=== PATIENT | female | born 1995 | race Caucasian/White ===

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

== ENCOUNTER 2017-01-13 07:50 | Inpatient (IN) | payer MEDICAID ==
--- NOTE | 2017-01-13 08:31 | PCM.LDHP ---
L&D History of Present Illness - General Date of Service: 01/13/17 Admit Problem/Dx: Admission Diagnosis/Problem Admission Diagnosis/Problem Source of Information: Patient History Limitations: Reports: No Limitations - History of Present Illness Introduction:: 21 year old female at 35w4d here with PROM of clear fluid at about 7am. Continued leaking such that she comes in sitting on a saturated towel. No bleeding. No contractions then but increasingly painful since arrival. care with Dr. Ram complicated by 1) History of partial abruption at 18 weeks with good growth since 2) RH neg s/p rhogam x2 3) [place] travel with negative Zika testing Improves with: Reports: None Worsens with: Reports: None Associated Symptoms: Reports: N - Related Data Allergies/Adverse Reactions: Allergies Allergy/AdvReac Type Severity Reaction Status Date / Time No Known Allergies Allergy Verified 09/11/16 03:22 Home Medications: Home Meds Pnv No.122/Iron/Folic Acid [ Multi Tablet] 1 each PO DAILY 09/11/16 [ History] Past Medical History - Past Health History Medical/Surgical History: Denies Medical/Surgical History 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: - Past Surgical History HEENT Surgical History: Reports: Tonsillectomy Social & Family History - Tobacco Use Smoking Status *Q: Never Smoker Second Hand Smoke Exposure: No - Caffeine Use Caffeine Use: Reports: None - Recreational Drug Use Recreational Drug Use: No - Living Situation & Occupation Living situation: Reports: Single, with Significant Other, with Family H&P Review of Systems - Review of Systems: Review Of Systems: See Below General: Reports: No Symptoms HEENT: Reports: No Symptoms Pulmonary: Reports: No Symptoms Cardiovascular: Reports: No Symptoms Gastrointestinal: Reports: No Symptoms Genitourinary: Reports: Other (see hpi) Musculoskeletal: Reports: No Symptoms Skin: Reports: No Symptoms Psychiatric: Reports: No Symptoms Neurological: Reports: No Symptoms Hematologic/Lymphatic: Reports: No Symptoms Immunologic: Reports: No Symptoms L&D Exam - Exam Exam: See Below - Vital Signs Weight: 68.946 kg - OB Specific Contraction Intensity: Mild to Moderate Movement: Active Heart Tones: Present Heart Tones per Min: 140 Heart Rate (FHR) Variability: Moderate (6-25 bmp) Presentation: Vertex Estimated Weight: 5#3oz - Altamirano Score Altamirano Score Cervix Position: Midposition Altamirano Score Consistency: Soft Altamirano Score Effacement: 51-70% Altamirano Score Dilation: 1-2 cm Altamirano Score 's Station: -3 Altamirano Score Total: 6 - Exam General: Alert, Oriented HEENT: PERRLA, Conjunctiva Clear, EACs Clear, EOMI, Hearing Intact, Mucosa Moist & [place], Nares Patent, Normal Nasal Septum, Posterior Pharynx Clear, TMs Clear Neck: Supple, Trachea Midline Lungs: Clear to Auscultation, Normal Respiratory Effort Cardiovascular: Regular Rate, Regular Rhythm GI/Abdominal Exam: Normal Bowel Sounds, Soft, Non-Tender, No Organomegaly, No Distention, No Abnormal Bruit, No Mass Genitourinary: Normal external exam, Normal bimanual exam, Normal speculum exam Back Exam: Normal Inspection, Full Range of Motion Extremities: Normal Inspection, Normal Range of Motion, Non-Tender, No Pedal Edema, Normal Capillary Refill Skin: Warm, Dry, Intact - Problem List (1) premature rupture of membranes SNOMED Code(s): 794445255, 280471617 ICD Code: O42.919 - PRETRM ALLAN ROM, UNSP TIME BETW RUPT AND ONST LABR, UNSP TRI Status: Acute Current Visit: Yes (2) Placental abruption in second trimester SNOMED Code(s): 787326527 ICD Code: O45.92 - PREMATURE SEPARATION OF PLACENTA, UNSP, SECOND TRIMESTER Status: Acute Current Visit: No (3) Rh negative state in antepartum period SNOMED Code(s): 054974992, 426065178 ICD Code: O09.899 - SUPERVISION OF OTHER HIGH RISK PREGNANCIES, UNSP TRIMESTER Status: Acute Current Visit: No Qualifiers: (4) labor in third trimester without delivery SNOMED Code(s): 9164244 ICD Code: O60.03 - LABOR WITHOUT DELIVERY, THIRD TRIMESTER Status: Acute Current Visit: Yes Problem List Initiated/Reviewed/Updated: Yes Assessment/Plan Comment:: 21 year old at 35w4d here with labor and prom. GBS pending and will be back in 30 minutes will treat as indicated CBC type and screen Anticipate
[2017-01-13] MEDS ORDERED: Sodium Chloride 0.9% 10 ML Syringe FLUSH PRN (08:32)
[2017-01-13] MEDS: Lactated Ringers 1,000 ML IV SCH ×4 (10:15→16:48)
[2017-01-13] MEDS ORDERED: Ampicillin 2 GM in Sodium Chloride 0.9% 100 ML IV STA (10:17)
[2017-01-13] MEDS ORDERED: Ampicillin 1 GM in Sodium Chloride 0.9% 100 ML IV STA (10:26)
[2017-01-13] MEDS ORDERED: Sodium Chloride 0.9% 100 ML ONE (10:27)
[2017-01-13] MEDS ORDERED: Oxytocin/Lactated Ringers 10 UNIT/1,000 ML BAG IV SCH (12:30)
[2017-01-13] MEDS ORDERED: fentaNYL 100 MCG/2 ML SDV ONE (16:33)
[2017-01-13] MEDS ORDERED: Ondansetron 4 MG/2 ML SDV IVPUSH PRN (16:35)
[2017-01-13] MEDS ORDERED: ePHEDrine 50 MG/ML SDV IVPUSH PRN (16:35)
[2017-01-13] MEDS ORDERED: fentaNYL 100 MCG/2 ML SDV EPIDUR PRN (16:35)
[2017-01-13] MEDS ORDERED: diphenhydrAMINE 50 MG/ML SDV IVPUSH PRN (16:35)
--- NOTE | 2017-01-13 16:41 | PCM.PREANE ---
Preanesthetic Assessment - Procedure Proposed Procedure: Labor Epidural - Anesthesia/Transfusion/Family Hx Anesthesia History: Prior Anesthesia Without Reaction Type of Anesthesia Reaction: Excessive Nausea/Vomiting Family History of Anesthesia Reaction: No Transfusion History: No Prior Transfusion(s) - Review of Systems General: No Symptoms Pulmonary: No Symptoms Cardiovascular: No Symptoms Gastrointestinal: Other (GERD with ) Neurological: No Symptoms Other: Reports: None - Physical Assessment NPO Status Date: 01/13/17 NPO Status Time: 14:30 Respiratory Rate: 18 Vital Signs: Last Vital Signs Temp 36.6 C 01/13/17 08:32 Pulse 86 01/13/17 08:32 Resp 18 01/13/17 08:32 BP 115/72 01/13/17 08:32 Pulse Ox Height: 1.63 m Weight: 78.953 kg ASA Class: 2 Mental Status: Alert & Oriented x3 Airway Class: Mallampati = 2 Dentition: Reports: Normal Dentition Thyro-Mental Finger Breadths: 3 Mouth Opening Finger Breadths: 3 ROM/Head Extension: Full Lungs: Clear to Auscultation, Normal Respiratory Effort Cardiovascular: Regular Rate, Regular Rhythm - Lab Values: Laboratory Last Values WBC 12.18 K/mm3 (3.98-10.04) H 01/13/17 08:49 RBC 4.32 M/mm3 (3.98-5.22) 01/13/17 08:49 Hgb 13.2 gm/L (11.2-15.7) 01/13/17 08:49 Hct 38.4 % (34.1-44.9) 01/13/17 08:49 MCV 88.9 fl (79.4-94.8) 01/13/17 08:49 MCH 30.6 pg (25.6-32.2) 01/13/17 08:49 MCHC 34.4 g/dl (32.2-35.5) 01/13/17 08:49 RDW Std Deviation 40.9 fL (36.4-46.3) 01/13/17 08:49 Plt Count 177 K/mm3 (182-369) L 01/13/17 08:49 MPV 10.9 fl (9.4-12.3) 01/13/17 08:49 Blood Type O NEGATIVE 01/13/17 08:49 Gel Antibody Screen Positive 01/13/17 08:49 - Allergies Allergies/Adverse Reactions: Allergies Allergy/AdvReac Type Severity Reaction Status Date / Time No Known Allergies Allergy Verified 09/11/16 03:22 - Blood Blood Available: No Product(s) Available: None - Anesthesia Plan Pre-Op Medication Ordered: None - Acknowledgements Anesthesia Type Planned: Epidural Pt an Appropriate Candidate for the Planned Anesthesia: Yes Alternatives and Risks of Anesthesia Discussed w Pt/Guardian: Yes Pt/Guardian Understands and Agrees with Anesthesia Plan: Yes PreAnesthesia Questionnaire - Past Health History Medical/Surgical History: Denies Medical/Surgical History 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: - Past Surgical History HEENT Surgical History: Reports: Tonsillectomy - SUBSTANCE USE Smoking Status *Q: Never Smoker Tobacco Use Within Last Twelve Months: No Second Hand Smoke Exposure: No Recreational Drug Use History: No - HOME MEDS Home Medications: Home Meds Pnv No.122/Iron/Folic Acid [ Multi Tablet] 1 each PO DAILY 09/11/16 [ History] - CURRENT (IN HOUSE) MEDS Current Meds: Current Medications Lactated Ringer's (Ringers, Lactated) 1,000 mls @ 100 mls/hr IV ASDIRECTED LETY Last Admin: 01/13/17 14:12 Dose: 999 mls/hr Oxytocin/Lactated Ringer's (Pitocin In Lr 10 Units/1,000 Ml) 10 unit in 1,000 mls @ 500 mls/hr IV .CONTINUOUS LETY Sodium Chloride (Saline Flush) 10 ml FLUSH ASDIRECTED PRN PRN Reason: Keep Vein Open Discontinued Medications Ampicillin Sodium 2 gm/ Sodium (Chloride) 100 mls @ 200 mls/hr IV ONETIME STA Stop: 01/13/17 10:46 Last Admin: 01/13/17 10:45 Dose: 200 mls/hr Ampicillin Sodium 1 gm/ Sodium (Chloride) 100 mls @ 200 mls/hr IV ONETIME STA Stop: 01/13/17 10:55 Last Admin: 01/13/17 11:20 Dose: Not Given Sodium Chloride (Normal Saline) Confirm Administered Dose 100 mls @ as directed .ROUTE .STK-MED ONE Stop: 01/13/17 10:28 Last Admin: 01/13/17 11:23 Dose: Not Given
[2017-01-13] MEDS ORDERED: Bupivacaine/fentaNYL/NS 100 ML Bag EPIDUR SCH (16:45)
[2017-01-13] MEDS ORDERED: Witch Hazel Medicated Pads 100/Jar TOP PRN (19:24)
[2017-01-13] MEDS ORDERED: Docusate Sodium 100 MG Cap PO PRN (19:24)
[2017-01-13] MEDS ORDERED: Benzocaine/Menthol 20%-0.5% Spray 56 GM Canister TOP PRN (19:24)
[2017-01-13] MEDS ORDERED: Lanolin 100% Cream 7 GM Tube TOP PRN (19:24)
[2017-01-13] MEDS ORDERED: Bupivacaine 0.25% 10 ML SDV ONE (22:22)
--- NOTE | 2017-01-14 07:18 | PCM.PNPP ---
- General Info Date of Service: 01/14/17 Functional Status: Reports: Pain Controlled - Review of Systems General: Reports: No Symptoms HEENT: Reports: No Symptoms Pulmonary: Reports: No Symptoms Cardiovascular: Reports: No Symptoms Gastrointestinal: Reports: No Symptoms Genitourinary: Reports: No Symptoms Musculoskeletal: Reports: No Symptoms Skin: Reports: No Symptoms Neurological: Reports: No Symptoms Psychiatric: Reports: No Symptoms - General Info Date of Service: 01/14/17 - Patient Data Vital Signs - most recent: Last Vital Signs Temp 36.7 C 01/14/17 05:14 Pulse 71 01/14/17 05:14 Resp 18 01/14/17 05:14 BP 118/74 01/14/17 05:14 Pulse Ox 97 01/14/17 05:14 Weight - most recent: 78.953 kg I&O - last 24 hours: Intake & Output 01/13/17 01/14/17 01/14/17 22:59 06:59 14:59 Intake Total 4000 Balance 4000 Lab Results - last 24 hrs: Laboratory Results - last 24 hr 01/13/17 01/13/17 Range/Units 08:49 08:49 WBC 12.18 H (3.98-10.04) K/mm3 RBC 4.32 (3.98-5.22) M/mm3 Hgb 13.2 (11.2-15.7) gm/L Hct 38.4 (34.1-44.9) % MCV 88.9 (79.4-94.8) fl MCH 30.6 (25.6-32.2) pg MCHC 34.4 (32.2-35.5) g/dl RDW Std Deviation 40.9 (36.4-46.3) fL Plt Count 177 L (182-369) K/mm3 MPV 10.9 (9.4-12.3) fl Blood Type O NEGATIVE Gel Antibody Screen Positive Med Orders - Current: Current Medications Benzocaine/Menthol (Dermoplast Pain Relief [place]) 0 gm TOP ASDIRECTED PRN PRN Reason: Perineal Comfort Measure Docusate Sodium (Colace) 100 mg PO BID PRN PRN Reason: Constipation Emollient Ointment (Lansinoh Hpa) 0 gm TOP ASDIRECTED PRN PRN Reason: Sore Nipples Ibuprofen (Motrin) 600 mg PO Q6H PRN PRN Reason: Mild pain or fever Witch Melany (Tucks) 1 pad TOP ASDIRECTED PRN PRN Reason: Hemorrhoid pain Discontinued Medications Diphenhydramine HCl (Benadryl) 25 mg IVPUSH Q6H PRN PRN Reason: Pruritis Ephedrine Sulfate (Ephedrine Sulfate) 5 mg IVPUSH ASDIRECTED PRN PRN Reason: Hypotension Fentanyl (Sublimaze) 100 mcg EPIDUR Q3H PRN PRN Reason: Pain Last Admin: 01/13/17 17:03 Dose: 100 mcg Fentanyl (Sublimaze) Confirm Administered Dose 100 mcg .ROUTE .STK-MED ONE Stop: 01/13/17 16:34 Last Admin: 01/13/17 18:53 Dose: Not Given Fentanyl/Bupivacaine HCl (Fentanyl/Bupivacaine/Ns 2 Mcg-0.125% 100 Ml) 100 ml EPIDUR ASDIRECTED LETY Last Admin: 01/13/17 17:03 Dose: 100 ml Lactated Ringer's (Ringers, Lactated) 1,000 mls @ 100 mls/hr IV ASDIRECTED LETY Last Admin: 01/13/17 16:48 Dose: 999 mls/hr Ampicillin Sodium 2 gm/ Sodium (Chloride) 100 mls @ 200 mls/hr IV ONETIME STA Stop: 01/13/17 10:46 Last Admin: 01/13/17 10:45 Dose: 200 mls/hr Ampicillin Sodium 1 gm/ Sodium (Chloride) 100 mls @ 200 mls/hr IV ONETIME STA Stop: 01/13/17 10:55 Last Admin: 01/13/17 11:20 Dose: Not Given Sodium Chloride (Normal Saline) Confirm Administered Dose 100 mls @ as directed .ROUTE .STK-MED ONE Stop: 01/13/17 10:28 Last Admin: 01/13/17 11:23 Dose: Not Given Oxytocin/Lactated Ringer's (Pitocin In Lr 10 Units/1,000 Ml) 10 unit in 1,000 mls @ 500 mls/hr IV .CONTINUOUS LETY Last Admin: 01/13/17 18:34 Dose: 500 mls/hr Ondansetron HCl (Zofran) 4 mg IVPUSH ONETIME PRN PRN Reason: Nausea/Vomiting Sodium Chloride (Saline Flush) 10 ml FLUSH ASDIRECTED PRN PRN Reason: Keep Vein Open - Interaction Disposition, : [place] at Bedside Support Person: Significant Other - Recovery Exam Fundal Tone: Firm Fundal Level: 1 Fingerbreadths Below Umbilicus Bladder Status: Voiding - Exam General: alert, oriented HEENT: Pupils equal Neck: supple Lungs: Clear to Auscultation, Normal Respiratory Effort Cardiovascular: Regular Rate, Regular Rhythm GI/Abdominal Exam: Normal Bowel Sounds, Soft, Non-Tender, No Organomegaly, No Distention, No Abnormal Bruit, No Mass, Pelvis Stable Extremities: Normal Inspection, Normal Range of Motion, Non-Tender, No Pedal Edema, Normal Capillary Refill Neurological: no new focal deficit Psy/Mental Status: alert, normal affect, normal mood - Problem List & Annotations (1) premature rupture of membranes SNOMED Code(s): 014083869, 635271829 Code(s): O42.919 - PRETRM ALLAN ROM, UNSP TIME BETW RUPT AND ONST LABR, UNSP TRI Status: Acute Current Visit: Yes (2) Placental abruption in second trimester SNOMED Code(s): 715431550 Code(s): O45.92 - PREMATURE SEPARATION OF PLACENTA, UNSP, SECOND TRIMESTER Status: Acute Current Visit: No (3) Rh negative state in antepartum period SNOMED Code(s): 612123400, 625411292 Code(s): O09.899 - SUPERVISION OF OTHER HIGH RISK PREGNANCIES, UNSP TRIMESTER Status: Acute Current Visit: No Qualifiers: (4) labor in third trimester without delivery SNOMED Code(s): 7438307 Code(s): O60.03 - LABOR WITHOUT DELIVERY, THIRD TRIMESTER Status: Acute Current Visit: Yes - Problem List Review Problem List Initiated/Reviewed/Updated: Yes - My Orders Last 24 Hours: My Active Orders 01/13/17 08:32 Resuscitation Status Routine 01/13/17 08:49 ANTIBODY IDENTIFICATION [BBK] Stat TYPE AND SCREEN [BBK] Stat 01/13/17 19:24 Activity as Tolerated [RC] PER UNIT ROUTINE Vital Signs [RC] 04,12,20 Benzocaine/Menthol [Dermoplast Pain Relief [place]] See Dose Instructions TOP ASDIRECTED PRN Docusate Sodium [Colace] 100 mg PO BID PRN Ibuprofen [Motrin] 600 mg PO Q6H PRN Lanolin [Lansinoh HPA] See Dose Instructions TOP ASDIRECTED PRN Witjim Roperel [Tucks] 1 pad TOP ASDIRECTED PRN Assess Lochia [WOMSER] Per Unit Routine Assess Uterine Involution [WOMSER] Per Unit Routine Breast Pump [WOMSER] Per Unit Routine Heat Therapy [OM.PC] PRN Medication Administration Instruction [OM.PC] Routine Perineal Care [OM.PC] Per Unit Routine Sitz Bath [OM.PC] Per Unit Routine 01/14/17 19:24 Heat Therapy [OM.PC] PRN - Assessment Assessment:: PPD1 s/p at 35 weeks. Doing great. No issues. - Plan Plan:: 21 year old at 35w4d with after labor and prom. Routine care.
[2017-01-14] MEDS: Ibuprofen 600 MG Tab PO PRN ×2 (14:43→23:29)
--- NOTE | 2017-01-14 19:39 | PCM48HPAN ---
Post Anesthesia Note - EVALUATION WITHIN 48HRS OF ANESTHETIC Vital Signs in Normal Range: Yes Patient Participated in Evaluation: Yes Respiratory Function Stable: Yes Airway Patent: Yes Cardiovascular Function Stable: Yes Hydration Status Stable: Yes Pain Control Satisfactory: Yes Nausea and Vomiting Control Satisfactory: Yes Mental Status Recovered: Yes - COMMENTS/OBSERVATIONS Free Text/Narrative:: Patient denied any residual n/t to lower extremities, headaches, or back pain
[2017-01-15 06:36] VITALS: BP 106/76
--- NOTE | 2017-01-15 09:28 | PCM.DCSUM1 ---
Discharge Summary - Discharge Data Discharge Date: 01/15/17 Discharge Disposition: Home, Self-Care 01 Condition: Good - Discharge Diagnosis/Problem(s) (1) premature rupture of membranes SNOMED Code(s): 369740274, 541780845 ICD Code: O42.919 - PRETRM ALLAN ROM, UNSP TIME BETW RUPT AND ONST LABR, UNSP TRI Status: Acute Current Visit: Yes (2) Placental abruption in second trimester SNOMED Code(s): 847174942 ICD Code: O45.92 - PREMATURE SEPARATION OF PLACENTA, UNSP, SECOND TRIMESTER Status: Acute Current Visit: No (3) Rh negative state in antepartum period SNOMED Code(s): 741022062, 184944685 ICD Code: O09.899 - SUPERVISION OF OTHER HIGH RISK PREGNANCIES, UNSP TRIMESTER Status: Acute Current Visit: No Qualifiers: (4) labor in third trimester without delivery SNOMED Code(s): 0307166 ICD Code: O60.03 - LABOR WITHOUT DELIVERY, THIRD TRIMESTER Status: Acute Current Visit: Yes - Patient Instructions Diet: Usual Diet as Tolerated Activity: No Strenuous Activities Driving: May Drive Today Showering/Bathing: May Shower Notify Provider of: Fever, Increased Pain, Swelling and Redness, Drainage, Nausea and/or Vomiting - Discharge Plan Home Medications: Home Meds Pnv No.122/Iron/Folic Acid [ Multi Tablet] 1 each PO DAILY 09/11/16 [ History] Referrals: Ro Coats MD [Physician] - (6 weeks) - Discharge Summary/Plan Comment DC Time >30 min.: No - General Info Date of Service: 01/15/17 - Review of Systems General: Reports: No Symptoms HEENT: Reports: No Symptoms Pulmonary: Reports: No Symptoms Cardiovascular: Reports: No Symptoms Gastrointestinal: Reports: No Symptoms Genitourinary: Reports: No Symptoms Musculoskeletal: Reports: No Symptoms Skin: Reports: No Symptoms Neurological: Reports: No Symptoms Psychiatric: Reports: No Symptoms - Patient Data Vitals - Most Recent: Last Vital Signs Temp 36.6 C 01/15/17 04:00 Pulse 64 01/15/17 05:42 Resp 16 01/14/17 20:00 BP 106/76 01/15/17 05:42 Pulse Ox 95 01/15/17 05:42 Weight - Most Recent: 78.953 kg Med Orders - Current: Current Medications Benzocaine/Menthol (Dermoplast Pain Relief [place]) 0 gm TOP ASDIRECTED PRN PRN Reason: Perineal Comfort Measure Docusate Sodium (Colace) 100 mg PO BID PRN PRN Reason: Constipation Emollient Ointment (Lansinoh Hpa) 0 gm TOP ASDIRECTED PRN PRN Reason: Sore Nipples Ibuprofen (Motrin) 600 mg PO Q6H PRN PRN Reason: Mild pain or fever Last Admin: 01/14/17 23:29 Dose: 600 mg Witch Melany (Tucks) 1 pad TOP ASDIRECTED PRN PRN Reason: Hemorrhoid pain Discontinued Medications Diphenhydramine HCl (Benadryl) 25 mg IVPUSH Q6H PRN PRN Reason: Pruritis Ephedrine Sulfate (Ephedrine Sulfate) 5 mg IVPUSH ASDIRECTED PRN PRN Reason: Hypotension Fentanyl (Sublimaze) 100 mcg EPIDUR Q3H PRN PRN Reason: Pain Last Admin: 01/13/17 17:03 Dose: 100 mcg Fentanyl (Sublimaze) Confirm Administered Dose 100 mcg .ROUTE .STK-MED ONE Stop: 01/13/17 16:34 Last Admin: 01/13/17 18:53 Dose: Not Given Fentanyl/Bupivacaine HCl (Fentanyl/Bupivacaine/Ns 2 Mcg-0.125% 100 Ml) 100 ml EPIDUR ASDIRECTED [facility] Last Admin: 01/13/17 17:03 Dose: 100 ml Lactated Ringer's (Ringers, Lactated) 1,000 mls @ 100 mls/hr IV ASDIRECTED [facility] Last Admin: 01/13/17 16:48 Dose: 999 mls/hr Ampicillin Sodium 2 gm/ Sodium (Chloride) 100 mls @ 200 mls/hr IV ONETIME STA Stop: 01/13/17 10:46 Last Admin: 01/13/17 10:45 Dose: 200 mls/hr Ampicillin Sodium 1 gm/ Sodium (Chloride) 100 mls @ 200 mls/hr IV ONETIME STA Stop: 01/13/17 10:55 Last Admin: 01/13/17 11:20 Dose: Not Given Sodium Chloride (Normal Saline) Confirm Administered Dose 100 mls @ as directed .ROUTE .STK-MED ONE Stop: 01/13/17 10:28 Last Admin: 01/13/17 11:23 Dose: Not Given Oxytocin/Lactated Ringer's (Pitocin In Lr 10 Units/1,000 Ml) 10 unit in 1,000 mls @ 500 mls/hr IV .CONTINUOUS LETY Last Admin: 01/13/17 18:34 Dose: 500 mls/hr Ondansetron HCl (Zofran) 4 mg IVPUSH ONETIME PRN PRN Reason: Nausea/Vomiting Sodium Chloride (Saline Flush) 10 ml FLUSH ASDIRECTED PRN PRN Reason: Keep Vein Open - Exam General: Reports: alert, oriented HEENT: Reports: Pupils equal, Pupils reactive, EOMI, Mucous membr. moist/pink Neck: Reports: supple Lungs: Reports: Clear to Auscultation, Normal Respiratory Effort Cardiovascular: Reports: Regular Rate, Regular Rhythm GI/Abdominal Exam: Normal Bowel Sounds, Soft, Non-Tender, No Organomegaly, No Distention, No Abnormal Bruit, No Mass, Pelvis Stable Back Exam: Reports: Normal Inspection, Full Range of Motion Extremities: Normal Inspection, Normal Range of Motion, Non-Tender, No Pedal Edema, Normal Capillary Refill Skin: Reports: warm, dry, intact Wound/Incisions: Reports: healing well Neurological: Reports: no new focal deficit Psy/Mental Status: Reports: alert, normal affect, normal mood *Q Meaningful Use (DIS) - VTE *Q VTE Criteria *Q: - Stroke *Q Stroke Criteria *Q: - AMI *Q AMI Criteria *Q:
== END 2017-01-15 11:00 | disposition home or self-care (01) | DRG 775 ==
LOC: JD.OBCHECK 07:50 → JD.OB 07:51 → OBSVTOIN 18:33
PROVIDERS: ADMIT Obstetrics & Gynecology; ATTEND Obstetrics & Gynecology
PROC: 10E0XZZ Delivery of Products of Conception, External Approach (ICD-10-PCS; principal; 2017-01-13)
PROC: 00HU33Z Insertion of Infusion Device into Spinal Canal, Percutaneous Approach (ICD-10-PCS; 2017-01-13)
PROC: 3E0R3CZ (ICD-10-PCS; 2017-01-13)
DX: O42.013 Preterm premature rupture of membranes, onset of labor within 24 hours of rupture, third trimester (principal); O60.14X0 Preterm labor third trimester with preterm delivery third trimester, not applicable or unspecified; Z3A.36 36 weeks gestation of pregnancy; Z37.0 Single live birth
CPT/HCPCS: 36415; 85027; 86850; 86870; 86900; 86901; 88307; 88307-26; A9270-GY; J0290; J2590; J3010; J7030; J7120

== ENCOUNTER 2018-07-31 08:35 | Emergency (ER) | payer SELFPAY ==
[2018-07-31 08:53] VITALS: BP 117/79
[2018-07-31] MEDS ORDERED: Sodium Chloride 0.9% 10 ML Syringe FLUSH PRN (09:12)
[2018-07-31] MEDS ORDERED: Ondansetron 4 MG/2 ML SDV IVPUSH ONE (09:13)
[2018-07-31] MEDS ORDERED: Sodium Chloride 0.9% 1,000 ML IV SCH (09:15)
--- NOTE | 2018-07-31 10:24 | EDM.PDOC ---
ED HPI GENERAL MEDICAL PROBLEM - General Chief Complaint: Gastrointestinal Problem Stated Complaint: VOMITING Time Seen by Provider: 07/31/18 09:06 Source of Information: Reports: Patient, RN Notes Reviewed - History of Present Illness INITIAL COMMENTS - FREE TEXT/NARRATIVE: 22-year-old female became ill last evening about 14 hours ago with nausea vomiting. she also has developed some low back discomfort and has had some intermittent voiding dysuria and frequency over the past couple of days. Worried about dehydration and also worried about possible bladder or kidney infection. No current diarrhea. Intermittent lower abdominal cramping. 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 Denies: Fever HEENT: Reports: No Symptoms Respiratory: Denies: Wheezing, Cough Cardiovascular: Denies: Chest Pain GI/Abdominal: Reports: Abdominal Pain, Nausea, Vomiting. Denies: Diarrhea, Hematochezia, Melena : Reports: Dysuria, Frequency Musculoskeletal: Reports: Back Pain Skin: Reports: No Symptoms Neurological: Reports: Dizziness ED EXAM, GI/ABD - Physical Exam Exam: See Below General Appearance: Alert, Mild Distress Eyes: Bilateral: Normal Appearance Throat/Mouth: Other (Oral mucosa somewhat dry) Head: Atraumatic Neck: Supple, Full Range of Motion Respiratory/Chest: No Respiratory Distress, Lungs Clear, Normal Breath Sounds Cardiovascular: Tachycardia GI/Abdominal Exam: Soft, Other (Very mild diffuse tenderness mid and lower abdomen). No: Guarding, Rebound Back Exam: No: CVA Tenderness (L), CVA Tenderness (R) Neurological: Alert, Oriented, No Motor/Sensory Deficits Skin Exam: Warm, Dry, Normal Color Course - Vital Signs Last Recorded V/S: Last Vital Signs Temp 98 F 07/31/18 08:47 Pulse 108 H 07/31/18 08:47 Resp 22 H 07/31/18 08:47 BP 117/79 07/31/18 08:47 Pulse Ox 99 07/31/18 08:47 - Orders/Labs/Meds Orders: Active Orders 24 hr Category Date Time Status Peripheral IV Care [RC] . DIRECTED Care 07/31/18 09:12 Active Peripheral IV Insertion Adult [OM.PC] Stat Oth 07/31/18 09:12 Ordered Labs: Laboratory Tests 07/31/18 07/31/18 Range/Units 09:26 11:00 WBC 15.16 H (3.98-10.04) K/mm3 RBC 4.91 (3.98-5.22) M/mm3 Hgb 15.0 (11.2-15.7) gm/L Hct 42.8 (34.1-44.9) % MCV 87.2 (79.4-94.8) fl MCH 30.5 (25.6-32.2) pg MCHC 35.0 (32.2-35.5) g/dl RDW Std Deviation 39.2 (36.4-46.3) fL Plt Count 237 (182-369) K/mm3 MPV 9.8 (9.4-12.3) fl Neut % (Auto) 93.5 H (34.0-71.1) % Lymph % (Auto) 3.2 L (19.3-51.7) % [place] % (Auto) 2.8 L (4.7-12.5) % Eos % (Auto) 0.1 L (0.7-5.8) Baso % (Auto) 0.1 (0.1-1.2) % Neut # (Auto) 14.18 H (1.56-6.13) K/mm3 Lymph # (Auto) 0.49 L (1.18-3.74) K/mm3 [place] # (Auto) 0.42 H (0.24-0.36) K/mm3 Eos # (Auto) 0.02 L (0.04-0.36) K/mm3 Baso # (Auto) 0.01 (0.01-0.08) K/mm3 Manual Slide Review Normal smear Urine Color Yellow (Yellow) Urine Appearance Clear (Clear) Urine pH 6.0 (5.0-8.0) Ur Specific [place] 1.025 (1.005-1.030) Urine Protein Negative (Negative) Urine Glucose (UA) Negative (Negative) Urine Ketones Negative (Negative) Urine Occult Blood Negative (Negative) Urine Nitrite Negative (Negative) Urine Bilirubin Negative (Negative) Urine Urobilinogen 1.0 (0.2-1.0) Ur Leukocyte Esterase Negative (Negative) Urine RBC 0-5 (0-5) /hpf Urine WBC 0-5 (0-5) /hpf Ur Epithelial Cells 0-5 (0-5) /hpf Urine Bacteria Few (FEW) /hpf Urine Mucus Moderate H (FEW) /hpf Meds: Medications Discontinued Medications Generic Name Dose Route Start Last Admin Trade Name Freq PRN Reason Stop Dose Admin Sodium Chloride 1,000 mls @ 999 mls/hr 07/31/18 09:15 07/31/18 09:35 Normal Saline IV 999 mls/hr ONETIME LETY Administration Ondansetron HCl 4 mg 07/31/18 09:13 07/31/18 09:35 Zofran IVPUSH 07/31/18 09:14 4 mg ONETIME ONE Administration Sodium Chloride 10 ml 07/31/18 09:12 07/31/18 09:37 Saline Flush FLUSH 10 ml ASDIRECTED PRN Administration Keep Vein Open - Re-Assessments/Exams Free Text/Narrative Re-Assessment/Exam: 07/31/18 11:48 UA is okay, no strong evidence for infection, we have given Zofran 4 mg IV, 1 L of normal saline. Does feel better, having some occasional chills but no further vomiting. Discharge instructions as documented. Departure - Departure Time of Disposition: 11:44 Disposition: Home, Self-Care 01 Condition: Fair Clinical Impression: Vomiting, Abdominal pain - Discharge Information Prescriptions: Ondansetron [Zofran ODT] 4 mg PO Q6H PRN #7 tab.dis PRN Reason: Nausea/Vomiting Instructions: Nausea and Vomiting, Adult, [id number] Referrals: PCP,None [Primary Care Provider] - Forms: ED Department Discharge Additional Instructions: Clear liquids until tomorrow, then very careful bland diet as tolerated. Zofran every 6-8 hours if needed for further nausea or vomiting. Prescription has been sent electronically to clinic pharmacy. Follow-up clinic if not getting back to normal within 1-2 days as expected, return to ED as needed if symptoms worsening in any way - My Orders Last 24 Hours: My Active Orders 07/31/18 09:12 Peripheral IV Care [RC] . DIRECTED Peripheral IV Insertion Adult [OM.PC] Stat - Assessment/Plan Last 24 Hours: My Active Orders 07/31/18 09:12 Peripheral IV Care [RC] . DIRECTED Peripheral IV Insertion Adult [OM.PC] Stat
== END 2018-07-31 12:15 | disposition home or self-care (01) ==
LOC: JD.ED 08:35
DX: R10.30 Lower abdominal pain, unspecified (principal); R11.2 Nausea with vomiting, unspecified
CPT/HCPCS: 36415; 81001; 85025; 96361; 96374; 99284; J2405; J7040

== ENCOUNTER 2020-07-25 11:09 | Day surgery (SDC) | payer SELFPAY ==
[2020-07-25] MEDS ORDERED: Ondansetron 4 MG/2 ML SDV IVPUSH ONE (12:22)
--- NOTE | 2020-07-25 12:27 | EDM.PDOC ---
ED HPI GENERAL MEDICAL PROBLEM - General Chief Complaint: Abdominal Pain Stated Complaint: ABDOMINAL PAIN Time Seen by Provider: 07/25/20 12:08 Source of Information: Reports: Patient, RN Notes Reviewed History Limitations: Reports: No Limitations - History of Present Illness INITIAL COMMENTS - FREE TEXT/NARRATIVE: The patient is a 24-year-old female who presents to the ED for her lower abdominal pain. Patient notes that this started this morning, with low pelvic/abdominal pain around her umbilicus. She denies any sort of vaginal bleeding, or discharge. She notes that the pain was very intense at home, so much so that she had to open the windows to get some fresh air. Patient does note that she has an Nexplanon implant in her arm, that was overdue in February. She has not had a regular menses since then. She states that when she feels some abdomen cramps that would feel like period cramps, that she has a little bit of vaginal bleeding or spotting right after that. Patient states that this morning, when she went to bend over to feed her dog, it hurt quite a bit and she was almost unable to stand. She did have some diarrhea this morning as well. She took 800 mg ibuprofen this seemed to help some of the pain. Patient is not sure if she can be as she has been having unprotected sex with an Nexplanon. She notes that the abdomen pain this morning lasted about 1.5 hours. She has had no previous abdominal surgeries, she is a . Primary care provider is Milvia Lester. She notes that no one else in her house is sick however the significant other in the room, states that he thought maybe he drank some bad milk last night, and was having some abdomen cramping today. 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 ED EXAM, GI/ABD - Physical Exam Exam: See Below Exam Limited By: No Limitations General Appearance: Alert, WD/WN, No Apparent Distress Respiratory/Chest: No Respiratory Distress, Lungs Clear, Normal Breath Sounds, No Accessory Muscle Use, Chest Non-Tender Cardiovascular: Normal Peripheral Pulses, Regular Rate, Rhythm, No Edema GI/Abdominal Exam: Normal Bowel Sounds, Soft, No Distention, No Mass, Tender (periumbilical/LLQ and RLQ pain.) (Female) Exam: Deferred Neurological: Alert, Oriented, Normal Cognition, No Motor/Sensory Deficits Psychiatric: Normal Affect, Normal Mood Skin Exam: Warm, Dry, Intact, Normal Color, No Rash Course - Vital Signs Last Recorded V/S: Last Vital Signs Temp 98.3 F 07/25/20 11:41 Pulse 60 07/25/20 11:41 Resp 20 07/25/20 11:41 BP 115/73 07/25/20 11:41 Pulse Ox 98 07/25/20 11:41 - Orders/Labs/Meds Orders: Active Orders 24 hr Category Date Time Status Patient Status [ADT] Stat ADT 07/25/20 16:14 Active Notify Provider Consults [RC] ASDIRECTED Care 07/25/20 16:24 Active Peripheral IV Care [RC] . DIRECTED Care 07/25/20 12:24 Active Consult to Physician [CONS] Stat Cons 07/25/20 16:23 Active Abdomen Pelvis w Cont [CT] Stat Exams 07/25/20 12:22 Taken Sodium Chloride 0.9% [Normal Saline] 1,000 ml Med 07/25/20 12:30 Active IV ASDIRECTED Sodium Chloride 0.9% [Normal Saline] 1,000 ml Med 07/25/20 15:12 Active IV ONETIME Sodium Chloride 0.9% [Saline Flush] Med 07/25/20 12:23 Active 10 ml FLUSH ASDIRECTED PRN Peripheral IV Insertion Adult [OM.PC] Routine Oth 07/25/20 12:23 Ordered Schedule Procedure [COMM] Stat Oth 07/25/20 16:15 Ordered Medication Orders Sodium Chloride (Normal Saline) 1,000 mls @ 999 mls/hr IV ASDIRECTED LETY Last Admin: 07/25/20 12:55 Dose: 999 mls/hr Documented by: HARSH Sodium Chloride (Normal Saline) 1,000 mls @ 150 mls/hr IV ONETIME ONE Stop: 07/25/20 21:51 Last Admin: 07/25/20 15:29 Dose: 150 mls/hr Documented by: HARSH Sodium Chloride (Saline Flush) 10 ml FLUSH ASDIRECTED PRN PRN Reason: Keep Vein Open Last Admin: 07/25/20 14:54 Dose: 10 ml Documented by: [id number] Admin: 07/25/20 12:55 Dose: 10 ml Documented by: HARSH Labs: Laboratory Tests 07/25/20 07/25/20 07/25/20 Range/Units 12:50 12:50 12:50 WBC 9.68 (3.98-10.04) K/mm3 RBC 4.77 (3.98-5.22) M/mm3 Hgb 14.1 (11.2-15.7) gm/dl Hct 41.9 (34.1-44.9) % MCV 87.8 (79.4-94.8) fl MCH 29.6 (25.6-32.2) pg MCHC 33.7 (32.2-35.5) g/dl RDW Std Deviation 40.3 (36.4-46.3) fL Plt Count 202 (182-369) K/mm3 MPV 9.9 (9.4-12.3) fl Neutrophils % (Manual) 80 H (40-60) % Band Neutrophils % 0 (0-10) % Lymphocytes % (Manual) 17 L (20-40) % Monocytes % (Manual) 2 (2-10) % Eosinophils % (Manual) 1 (0.7-5.8) % Basophils % (Manual) 0 L (0.1-1.2) Platelet Estimate Adequate RBC Morph Comment Normal Sodium (136-145) mEq/L Potassium (3.5-5.1) mEq/L Chloride (98-107) mEq/L Carbon Dioxide (21-32) mEq/L Anion Gap (5-15) BUN (7-18) mg/dL Creatinine (0.55-1.02) mg/dL Est Cr Clr Drug Dosing mL/min Estimated GFR (MDRD) (>60) mL/min BUN/Creatinine Ratio (14-18) Glucose (74-106) mg/dL Calcium (8.5-10.1) mg/dL Total Bilirubin (0.2-1.0) mg/dL AST (15-37) U/L ALT (14-59) U/L Alkaline Phosphatase (46-116) U/L C-Reactive Protein (<1.0) mg/dL Total Protein (6.4-8.2) g/dl Albumin (3.4-5.0) g/dl Globulin gm/dL Albumin/Globulin Ratio (1-2) Urine Color Yellow (Yellow) Urine Appearance Clear (Clear) Urine pH 7.0 (5.0-8.0) Ur Specific [place] 1.025 (1.005-1.030) Urine Protein Trace H (Negative) Urine Glucose (UA) Negative (Negative) Urine Ketones Negative (Negative) Urine Occult Blood Negative (Negative) Urine Nitrite Negative (Negative) Urine Bilirubin Negative (Negative) Urine Urobilinogen 1.0 (0.2-1.0) Ur Leukocyte Esterase Negative (Negative) Urine RBC 0-5 (0-5) /hpf Urine WBC 0-5 (0-5) /hpf Ur Epithelial Cells 0-5 (0-5) /hpf Urine Bacteria Few (FEW) /hpf Urine Mucus Moderate H (FEW) /hpf Urine HCG, Qual Negative (NEGATIVE) Influenza Type A RNA (NEGATIVE) Influenza Type B RNA (NEGATIVE) SARS-CoV-2 RNA (BRETT) (NEGATIVE) 07/25/20 07/25/20 Range/Units 12:50 15:10 WBC (3.98-10.04) K/mm3 RBC (3.98-5.22) M/mm3 Hgb (11.2-15.7) gm/dl Hct (34.1-44.9) % MCV (79.4-94.8) fl MCH (25.6-32.2) pg MCHC (32.2-35.5) g/dl RDW Std Deviation (36.4-46.3) fL Plt Count (182-369) K/mm3 MPV (9.4-12.3) fl Neutrophils % (Manual) (40-60) % Band Neutrophils % (0-10) % Lymphocytes % (Manual) (20-40) % Monocytes % (Manual) (2-10) % Eosinophils % (Manual) (0.7-5.8) % Basophils % (Manual) (0.1-1.2) Platelet Estimate RBC Morph Comment Sodium 140 (136-145) mEq/L Potassium 3.7 (3.5-5.1) mEq/L Chloride 105 (98-107) mEq/L Carbon Dioxide 23 (21-32) mEq/L Anion Gap 15.7 H (5-15) BUN 15 (7-18) mg/dL Creatinine 0.7 (0.55-1.02) mg/dL Est Cr Clr Drug Dosing 118.01 mL/min Estimated GFR (MDRD) > 60 (>60) mL/min BUN/Creatinine Ratio 21.4 H (14-18) Glucose 87 (74-106) mg/dL Calcium 8.9 (8.5-10.1) mg/dL Total Bilirubin 0.8 (0.2-1.0) mg/dL AST 17 (15-37) U/L ALT 20 (14-59) U/L Alkaline Phosphatase 47 (46-116) U/L C-Reactive Protein <0.2 (<1.0) mg/dL Total Protein 7.3 (6.4-8.2) g/dl Albumin 4.0 (3.4-5.0) g/dl Globulin 3.3 gm/dL Albumin/Globulin Ratio 1.2 (1-2) Urine Color (Yellow) Urine Appearance (Clear) Urine pH (5.0-8.0) Ur Specific [place] (1.005-1.030) Urine Protein (Negative) Urine Glucose (UA) (Negative) Urine Ketones (Negative) Urine Occult Blood (Negative) Urine Nitrite (Negative) Urine Bilirubin (Negative) Urine Urobilinogen (0.2-1.0) Ur Leukocyte Esterase (Negative) Urine RBC (0-5) /hpf Urine WBC (0-5) /hpf Ur Epithelial Cells (0-5) /hpf Urine Bacteria (FEW) /hpf Urine Mucus (FEW) /hpf Urine HCG, Qual (NEGATIVE) Influenza Type A RNA Negative (NEGATIVE) Influenza Type B RNA Negative (NEGATIVE) SARS-CoV-2 RNA (BRETT) Negative (NEGATIVE) Meds: Medications Generic Name Dose Route Start Last Admin Trade Name Freq PRN Reason Stop Dose Admin Sodium Chloride 1,000 mls @ 999 mls/hr 07/25/20 12:30 07/25/20 12:55 Normal Saline IV 999 mls/hr ASDIRECTED LETY Administration Sodium Chloride 1,000 mls @ 150 mls/hr 07/25/20 15:12 07/25/20 15:29 Normal Saline IV 07/25/20 21:51 150 mls/hr ONETIME ONE Administration Sodium Chloride 10 ml 07/25/20 12:23 07/25/20 14:54 Saline Flush FLUSH 10 ml ASDIRECTED PRN Administration Keep Vein Open Discontinued Medications Generic Name Dose Route Start Last Admin Trade Name Frekimberly PRN Reason Stop Dose Admin Dexamethasone Confirm 07/25/20 16:33 Dexamethasone Administered 07/25/20 16:34 Dose 20 mg .ROUTE .STK-MED ONE Diatrizoate Meglum/Diatrizoate Sod 60 ml 07/25/20 14:38 07/25/20 14:49 Gastrografin 37% PO 07/25/20 14:39 60 ml ONETIME ONE Administration Fentanyl Confirm 07/25/20 16:31 Sublimaze Administered 07/25/20 16:32 Dose 250 mcg .ROUTE .STK-MED ONE Cefoxitin Sodium 2 gm/ Premix 50 mls @ 100 mls/hr 07/25/20 15:10 07/25/20 15:29 IV 07/25/20 15:39 100 mls/hr ONETIME ONE Administration Lidocaine HCl Confirm 07/25/20 16:30 Xylocaine-Mpf 1% Administered 07/25/20 16:31 Dose 4 mls @ as directed .ROUTE .STK-MED ONE Iopamidol 100 ml 07/25/20 14:38 07/25/20 14:49 Isovue-300 (61%) IVPUSH 07/25/20 14:39 100 ml ONETIME ONE Administration Iopamidol 25 ml 07/25/20 14:38 07/25/20 14:49 Isovue-300 (61%) IVPUSH 07/25/20 14:39 25 ml ONETIME ONE Administration Metoclopramide HCl 10 mg 07/25/20 15:10 07/25/20 15:28 Reglan IVPUSH 07/25/20 15:11 10 mg ONETIME ONE Administration Midazolam HCl Confirm 07/25/20 16:31 Versed 1 Mg/Ml Administered 07/25/20 16:32 Dose 2 mg .ROUTE .STK-MED ONE Ondansetron HCl 4 mg 07/25/20 12:22 07/25/20 12:55 Zofran IVPUSH 07/25/20 12:23 4 mg ONETIME ONE Administration Ondansetron HCl Confirm 07/25/20 16:30 Zofran Administered 07/25/20 16:31 Dose 4 mg .ROUTE .STK-MED ONE Propofol Confirm 07/25/20 16:30 Diprivan 20 Ml Administered 07/25/20 16:31 Dose 200 mg .ROUTE .STK-MED ONE Rocuronium Gregory Confirm 07/25/20 16:30 Zemuron Administered 07/25/20 16:31 Dose 50 mg .ROUTE .STK-MED ONE - Re-Assessments/Exams Free Text/Narrative Re-Assessment/Exam: 07/25/20 12:29 Patient presents to the ED for evaluation of her lower abdomen pain. We will get a urinalysis to rule out initially, but we will also get a CT if she is not , for evaluation of appendicitis. Likely this could be appendicitis vs menstrual cramps vs gastroenteritis due to some bad food last night vs /ectopic or otherwise. 07/25/20 15:11 Labs have returned, everything is fairly unremarkable however the patient CT did return with a enlarged appendix, suspicious for appendicitis. Dr. Ortega surgeon communication engineer was likely enough in the ER consulting on a different patient and did over read the CT and has agreed to take the patient to surgery after his first case. Covid swab will be obtained in the meantime have ordered 2 g cefoxitin and 10 mg Reglan. Patient has not eaten food today, her last intake was supper last night. 07/25/20 15:[address] report is back, and demonstrates the appendix is at the upper limits of normal, but no surrounding soft tissue stranding. They are thinking it might be an anatomic variation, but clinically the patient has acute peritonitis localized to this area. Will have Dr. Ortega look at the results when he is done with his other case and he can determine if he wants to admit with IV antibiotics or take to surgery. 07/25/20 16:54 The patient's Covid screen is negative. Departure - Departure Time of Disposition: 15:31 Disposition: DC/Tfer to [facility] Condition: Good Clinical Impression: Appendicitis Qualifiers: Appendicitis type: acute appendicitis Acute appendicitis type: with localized peritonitis Appendicitis gangrene presence: without gangrene Appendicitis perforation presence: without perforation Appendicitis abscess presence: without abscess Qualified Code(s): K35.30 - Acute appendicitis with localized peritonitis, without perforation or gangrene - Discharge Information *PRESCRIPTION DRUG MONITORING PROGRAM REVIEWED*: No *COPY OF PRESCRIPTION DRUG MONITORING REPORT IN PATIENT JUVENTINO: No Sepsis Event Note (ED) - Evaluation Sepsis Screening Result: No Definite Risk - Focused Exam Vital Signs: Vital Signs Temp Pulse Resp BP Pulse Ox 07/25/20 11:41 98.3 F 60 20 115/73 98 - My Orders Last 24 Hours: My Active Orders 07/25/20 12:22 Abdomen Pelvis w Cont [CT] Stat 07/25/20 12:23 Sodium Chloride 0.9% [Saline Flush] 10 ml FLUSH ASDIRECTED PRN Peripheral IV Insertion Adult [OM.PC] Routine 07/25/20 12:24 Peripheral IV Care [RC] . DIRECTED 07/25/20 12:30 Sodium Chloride 0.9% [Normal Saline] 1,000 ml IV ASDIRECTED 07/25/20 15:12 Sodium Chloride 0.9% [Normal Saline] 1,000 ml IV ONETIME 07/25/20 16:23 Consult to Physician [CONS] Stat 07/25/20 16:24 Notify Provider Consults [RC] ASDIRECTED - Assessment/Plan Last 24 Hours: My Active Orders 07/25/20 12:22 Abdomen Pelvis w Cont [CT] Stat 07/25/20 12:23 Sodium Chloride 0.9% [Saline Flush] 10 ml FLUSH ASDIRECTED PRN Peripheral IV Insertion Adult [OM.PC] Routine 07/25/20 12:24 Peripheral IV Care [RC] . DIRECTED 07/25/20 12:30 Sodium Chloride 0.9% [Normal Saline] 1,000 ml IV ASDIRECTED 07/25/20 15:12 Sodium Chloride 0.9% [Normal Saline] 1,000 ml IV ONETIME 07/25/20 16:23 Consult to Physician [CONS] Stat 07/25/20 16:24 Notify Provider Consults [RC] ASDIRECTED
[2020-07-25] MEDS ORDERED: Sodium Chloride 0.9% 1,000 ML IV SCH (12:30)
[2020-07-25] MEDS: Sodium Chloride 0.9% 10 ML Syringe FLUSH PRN ×2 (12:55→14:54)
[2020-07-25] MEDS ORDERED: Diatrizoate Meglumine/Diatrizoate Sodium 37% 120 ML Bottle PO ONE (14:38)
[2020-07-25] MEDS ORDERED: Iopamidol 612 MG/ML 50 ML SDV IVPUSH ONE (14:38)
[2020-07-25] MEDS ORDERED: Iopamidol 612 MG/ML 100 ML Bottle IVPUSH ONE (14:38)
[2020-07-25] MEDS ORDERED: Metoclopramide 10 MG/2 ML SDV IVPUSH ONE (15:10)
[2020-07-25] MEDS ORDERED: cefOXitin 2 GM in Premix Bag 1 BAG IV ONE (15:10)
[2020-07-25] MEDS ORDERED: Sodium Chloride 0.9% 1,000 ML IV ONE (15:12)
[2020-07-25 16:06] LABS: CORONAVIRUS COVID-19 NAA NEGATIVE (NEGATIVE)
[2020-07-25] MEDS ORDERED: Rocuronium 50 MG/5 ML Vial ONE (16:30)
[2020-07-25] MEDS ORDERED: Ondansetron 4 MG/2 ML SDV ONE ×2 (16:30→18:07)
[2020-07-25] MEDS ORDERED: Propofol 200 MG/20 ML SDV ONE (16:30)
[2020-07-25] MEDS ORDERED: Lidocaine 1% 4 ML ONE (16:30)
[2020-07-25] MEDS ORDERED: Midazolam 1 MG/ML 2 ML SDV ONE (16:31)
[2020-07-25] MEDS ORDERED: fentaNYL 250 MCG/5 ML SDV ONE (16:31)
[2020-07-25] MEDS ORDERED: Dexamethasone 4 MG/ML 5 ML MDV ONE (16:33)
--- NOTE | 2020-07-25 17:29 | PCM.CONS ---
H&P History of Present Illness - General Date of Service: 07/25/20 Admit Problem/Dx: Admission Diagnosis/Problem Admission Diagnosis/Problem Appendectomy Source of Information: Patient History Limitations: Reports: No Limitations - History of Present Illness Initial Comments - Free Text/Narative: Patient started having sudden onset of periumbilical pain this morning. The pain was severe. worse with movement, especially standing up from a sitting position or stretching the right leg. This is new pain. Eventually localized in the RLQ. Had diarrhea as well. Presented to the ED. Onset of Symptoms: Reports: Today, Sudden Duration of Symptoms: Reports: Hour(s): (10) Location: Reports: Abdomen (RLQ) Quality: Reports: Sharp Severity: Moderate Improves with: Reports: Immobilization Worsens with: Reports: Movement Associated Symptoms: Reports: Other (diarrhea) Lower Abdomen Pain Score (Numeric/FACES): 4 - Related Data Allergies/Adverse Reactions: Allergies Allergy/AdvReac Type Severity Reaction Status Date / Time No Known Allergies Allergy Verified 09/11/16 03:22 Home Medications: Home Meds Etonogestrel [Nexplanon] 1 applic ASDIRECTED 01/27/19 [History] Past Medical History - Past Health History Medical/Surgical History: Denies 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: - Past Surgical History HEENT Surgical History: Reports: Tonsillectomy Social & Family History - Family History Family Medical History: No Pertinent Family History - Tobacco Use Tobacco Use Status *Q: Never Tobacco User - Caffeine Use Caffeine Use: Reports: Coffee - Recreational Drug Use Recreational Drug Use: No - Living Situation & Occupation Living situation: Reports: Single, with Significant Other, with Family H&P Review of Systems - Review of Systems: Review Of Systems: See Below General: Reports: No Symptoms HEENT: Reports: No Symptoms Pulmonary: Reports: No Symptoms Cardiovascular: Reports: No Symptoms Gastrointestinal: Reports: Abdominal Pain, Diarrhea Genitourinary: Reports: No Symptoms Musculoskeletal: Reports: No Symptoms Skin: Reports: No Symptoms Psychiatric: Reports: No Symptoms Neurological: Reports: No Symptoms Exam - Exam Exam: See Below - Vital Signs Vital Signs: Last Vital Signs Temp 98.3 F 07/25/20 11:41 Pulse 60 07/25/20 11:41 Resp 20 07/25/20 11:41 BP 115/73 07/25/20 11:41 Pulse Ox 98 07/25/20 11:41 Weight: 85.927 kg - Exam General: Alert, Oriented, Cooperative Lungs: Clear to Auscultation, Normal Respiratory Effort Cardiovascular: Regular Rate, Regular Rhythm, Normal S1, Normal S2 GI/Abdominal Exam: Soft, No Organomegaly, No Abnormal Bruit, No Mass, Tender (RLQ to deep palpation) - Patient Data Lab Results Last 24 hrs: Laboratory Results - last 24 hr 07/25/20 07/25/20 07/25/20 Range/Units 12:50 12:50 12:50 WBC 9.68 (3.98-10.04) K/mm3 RBC 4.77 (3.98-5.22) M/mm3 Hgb 14.1 (11.2-15.7) gm/dl Hct 41.9 (34.1-44.9) % MCV 87.8 (79.4-94.8) fl MCH 29.6 (25.6-32.2) pg MCHC 33.7 (32.2-35.5) g/dl RDW Std Deviation 40.3 (36.4-46.3) fL Plt Count 202 (182-369) K/mm3 MPV 9.9 (9.4-12.3) fl Neutrophils % (Manual) 80 H (40-60) % Band Neutrophils % 0 (0-10) % Lymphocytes % (Manual) 17 L (20-40) % Monocytes % (Manual) 2 (2-10) % Eosinophils % (Manual) 1 (0.7-5.8) % Basophils % (Manual) 0 L (0.1-1.2) Platelet Estimate Adequate RBC Morph Comment Normal Sodium (136-145) mEq/L Potassium (3.5-5.1) mEq/L Chloride (98-107) mEq/L Carbon Dioxide (21-32) mEq/L Anion Gap (5-15) BUN (7-18) mg/dL Creatinine (0.55-1.02) mg/dL Est Cr Clr Drug Dosing mL/min Estimated GFR (MDRD) (>60) mL/min BUN/Creatinine Ratio (14-18) Glucose (74-106) mg/dL Calcium (8.5-10.1) mg/dL Total Bilirubin (0.2-1.0) mg/dL AST (15-37) U/L ALT (14-59) U/L Alkaline Phosphatase (46-116) U/L C-Reactive Protein (<1.0) mg/dL Total Protein (6.4-8.2) g/dl Albumin (3.4-5.0) g/dl Globulin gm/dL Albumin/Globulin Ratio (1-2) Urine Color Yellow (Yellow) Urine Appearance Clear (Clear) Urine pH 7.0 (5.0-8.0) Ur Specific [place] 1.025 (1.005-1.030) Urine Protein Trace H (Negative) Urine Glucose (UA) Negative (Negative) Urine Ketones Negative (Negative) Urine Occult Blood Negative (Negative) Urine Nitrite Negative (Negative) Urine Bilirubin Negative (Negative) Urine Urobilinogen 1.0 (0.2-1.0) Ur Leukocyte Esterase Negative (Negative) Urine RBC 0-5 (0-5) /hpf Urine WBC 0-5 (0-5) /hpf Ur Epithelial Cells 0-5 (0-5) /hpf Urine Bacteria Few (FEW) /hpf Urine Mucus Moderate H (FEW) /hpf Urine HCG, Qual Negative (NEGATIVE) Influenza Type A RNA (NEGATIVE) Influenza Type B RNA (NEGATIVE) SARS-CoV-2 RNA (BRETT) (NEGATIVE) 07/25/20 07/25/20 Range/Units 12:50 15:10 WBC (3.98-10.04) K/mm3 RBC (3.98-5.22) M/mm3 Hgb (11.2-15.7) gm/dl Hct (34.1-44.9) % MCV (79.4-94.8) fl MCH (25.6-32.2) pg MCHC (32.2-35.5) g/dl RDW Std Deviation (36.4-46.3) fL Plt Count (182-369) K/mm3 MPV (9.4-12.3) fl Neutrophils % (Manual) (40-60) % Band Neutrophils % (0-10) % Lymphocytes % (Manual) (20-40) % Monocytes % (Manual) (2-10) % Eosinophils % (Manual) (0.7-5.8) % Basophils % (Manual) (0.1-1.2) Platelet Estimate RBC Morph Comment Sodium 140 (136-145) mEq/L Potassium 3.7 (3.5-5.1) mEq/L Chloride 105 (98-107) mEq/L Carbon Dioxide 23 (21-32) mEq/L Anion Gap 15.7 H (5-15) BUN 15 (7-18) mg/dL Creatinine 0.7 (0.55-1.02) mg/dL Est Cr Clr Drug Dosing 118.01 mL/min Estimated GFR (MDRD) > 60 (>60) mL/min BUN/Creatinine Ratio 21.4 H (14-18) Glucose 87 (74-106) mg/dL Calcium 8.9 (8.5-10.1) mg/dL Total Bilirubin 0.8 (0.2-1.0) mg/dL AST 17 (15-37) U/L ALT 20 (14-59) U/L Alkaline Phosphatase 47 (46-116) U/L C-Reactive Protein <0.2 (<1.0) mg/dL Total Protein 7.3 (6.4-8.2) g/dl Albumin 4.0 (3.4-5.0) g/dl Globulin 3.3 gm/dL Albumin/Globulin Ratio 1.2 (1-2) Urine Color (Yellow) Urine Appearance (Clear) Urine pH (5.0-8.0) Ur Specific [place] (1.005-1.030) Urine Protein (Negative) Urine Glucose (UA) (Negative) Urine Ketones (Negative) Urine Occult Blood (Negative) Urine Nitrite (Negative) Urine Bilirubin (Negative) Urine Urobilinogen (0.2-1.0) Ur Leukocyte Esterase (Negative) Urine RBC (0-5) /hpf Urine WBC (0-5) /hpf Ur Epithelial Cells (0-5) /hpf Urine Bacteria (FEW) /hpf Urine Mucus (FEW) /hpf Urine HCG, Qual (NEGATIVE) Influenza Type A RNA Negative (NEGATIVE) Influenza Type B RNA Negative (NEGATIVE) SARS-CoV-2 RNA (BRETT) Negative (NEGATIVE) Result Diagrams: 07/25/20 12:50 07/25/20 12:50 Sepsis Event Note - Evaluation Sepsis Screening Result: No Definite Risk - Focused Exam Vital Signs: Vital Signs Temp Pulse Resp BP Pulse Ox 07/25/20 11:41 98.3 F 60 20 115/73 98 Consult PN Assessment/Plan Procedures: Procedures C-REACTIVE PROTEIN (01/27/19) CHORIONIC GONADOTROPIN ASSAY (01/27/19) COMPLETE CBC W/AUTO DIFF WBC (01/27/19) EMERGENCY DEPT VISIT (01/27/19) EMERGENCY DEPT VISIT (07/31/18) HYDRATE IV INFUSION ADD-ON (01/27/19) METABOLIC PANEL TOTAL CA (01/27/19) ROUTINE VENIPUNCTURE (01/27/19) THER/PROPH/DIAG INJ IV PUSH (01/27/19) TX/PRO/DX INJ NEW DRUG ADDON (01/27/19) URINALYSIS AUTO W/SCOPE (07/31/18) Problem List Initiated/Reviewed/Updated: No My Orders Last 24 Hours: My Active Orders 07/25/20 16:14 Patient Status [ADT] Stat 07/25/20 16:15 Schedule Procedure [COMM] Stat Plan: Patient has what I highly suspect to be an early appendicitis. My review of the CT shows slight inflamed distal appendix. Radiologist favors a normal variant of an enlarged appendix. However, based on her symptoms of sudden onset abd pain localizing on RLQ worse with right leg stretching, I am convinced that this is due to early appendicitis and anatomically the appendix is retrocecal which will explain pain with iliopsoas movement. I discussed radiologist read and my suspicion with the patient. I discussed with the patient options for appendicitis management including antibiotics alone vs surgery. We discussed risks and benefits of each. The patient would like to pursue surgery at this time. Specific surgical risks discussed include injury to adjacent structures, bleeding, infection. Post op expectations were also discussed including not lifting more than 20lb for 2 weeks. Patient verbalized understanding and informed consent was obtained.
[2020-07-25] MEDS ORDERED: Bupivacaine 0.5%/EPINEPHrine 1:200,000 50 ML MDV ONE (17:34)
[2020-07-25] MEDS ORDERED: Lactated Ringers 1,000 ML ONE (17:34)
--- NOTE | 2020-07-25 17:39 | PCM.PREANE ---
Preanesthetic Assessment - Procedure Proposed Procedure: lap appy - Anesthesia/Transfusion/Family Hx Anesthesia History: Prior Anesthesia Without Reaction Family History of Anesthesia Reaction: No Transfusion History: No Prior Transfusion(s) - Review of Systems General: No Symptoms Pulmonary: No Symptoms Cardiovascular: No Symptoms Gastrointestinal: Abdominal Pain (this am), Diarrhea, Nausea (earlier) Neurological: No Symptoms Other: Reports: None - Physical Assessment NPO Status Date: 07/24/20 NPO Status Time: 22:00 Vital Signs: Last Vital Signs Temp 98.3 F 07/25/20 11:41 Pulse 60 07/25/20 11:41 Resp 20 07/25/20 11:41 BP 115/73 07/25/20 11:41 Pulse Ox 98 07/25/20 11:41 Height: 5 ft 6 in Weight: 85.927 kg ASA Class: 2E Mental Status: Alert & Oriented x3 Airway Class: Mallampati = 1 Dentition: Reports: Normal Dentition Thyro-Mental Finger Breadths: 3 Mouth Opening Finger Breadths: 3 ROM/Head Extension: Full Lungs: Clear to Auscultation, Normal Respiratory Effort Cardiovascular: Regular Rate, Regular Rhythm - Lab Values: Laboratory Last Values WBC 9.68 K/mm3 (3.98-10.04) 07/25/20 12:50 RBC 4.77 M/mm3 (3.98-5.22) 07/25/20 12:50 Hgb 14.1 gm/dl (11.2-15.7) 07/25/20 12:50 Hct 41.9 % (34.1-44.9) 07/25/20 12:50 MCV 87.8 fl (79.4-94.8) 07/25/20 12:50 MCH 29.6 pg (25.6-32.2) 07/25/20 12:50 MCHC 33.7 g/dl (32.2-35.5) 07/25/20 12:50 RDW Std Deviation 40.3 fL (36.4-46.3) 07/25/20 12:50 Plt Count 202 K/mm3 (182-369) 07/25/20 12:50 MPV 9.9 fl (9.4-12.3) 07/25/20 12:50 Neutrophils % (Manual) 80 % (40-60) H 07/25/20 12:50 Band Neutrophils % 0 % (0-10) 07/25/20 12:50 Lymphocytes % (Manual) 17 % (20-40) L 07/25/20 12:50 Monocytes % (Manual) 2 % (2-10) 07/25/20 12:50 Eosinophils % (Manual) 1 % (0.7-5.8) 07/25/20 12:50 Basophils % (Manual) 0 (0.1-1.2) L 07/25/20 12:50 Platelet Estimate Adequate 07/25/20 12:50 RBC Morph Comment Normal 07/25/20 12:50 Sodium 140 mEq/L (136-145) 07/25/20 12:50 Potassium 3.7 mEq/L (3.5-5.1) 07/25/20 12:50 Chloride 105 mEq/L (98-107) 07/25/20 12:50 Carbon Dioxide 23 mEq/L (21-32) 07/25/20 12:50 Anion Gap 15.7 (5-15) H 07/25/20 12:50 BUN 15 mg/dL (7-18) 07/25/20 12:50 Creatinine 0.7 mg/dL (0.55-1.02) 07/25/20 12:50 Est Cr Clr Drug Dosing 118.01 mL/min 07/25/20 12:50 Estimated GFR (MDRD) > 60 mL/min (>60) 07/25/20 12:50 BUN/Creatinine Ratio 21.4 (14-18) H 07/25/20 12:50 Glucose 87 mg/dL (74-106) 07/25/20 12:50 Calcium 8.9 mg/dL (8.5-10.1) 07/25/20 12:50 Total Bilirubin 0.8 mg/dL (0.2-1.0) 07/25/20 12:50 AST 17 U/L (15-37) 07/25/20 12:50 ALT 20 U/L (14-59) 07/25/20 12:50 Alkaline Phosphatase 47 U/L (46-116) 07/25/20 12:50 C-Reactive Protein <0.2 mg/dL (<1.0) 07/25/20 12:50 Total Protein 7.3 g/dl (6.4-8.2) 07/25/20 12:50 Albumin 4.0 g/dl (3.4-5.0) 07/25/20 12:50 Globulin 3.3 gm/dL 07/25/20 12:50 Albumin/Globulin Ratio 1.2 (1-2) 07/25/20 12:50 Urine Color Yellow (Yellow) 07/25/20 12:50 Urine Appearance Clear (Clear) 07/25/20 12:50 Urine pH 7.0 (5.0-8.0) 07/25/20 12:50 Ur Specific [place] 1.025 (1.005-1.030) 07/25/20 12:50 Urine Protein Trace (Negative) H 07/25/20 12:50 Urine Glucose (UA) Negative (Negative) 07/25/20 12:50 Urine Ketones Negative (Negative) 07/25/20 12:50 Urine Occult Blood Negative (Negative) 07/25/20 12:50 Urine Nitrite Negative (Negative) 07/25/20 12:50 Urine Bilirubin Negative (Negative) 07/25/20 12:50 Urine Urobilinogen 1.0 (0.2-1.0) 07/25/20 12:50 Ur Leukocyte Esterase Negative (Negative) 07/25/20 12:50 Urine RBC 0-5 /hpf (0-5) 07/25/20 12:50 Urine WBC 0-5 /hpf (0-5) 07/25/20 12:50 Ur Epithelial Cells 0-5 /hpf (0-5) 07/25/20 12:50 Urine Bacteria Few /hpf (FEW) 07/25/20 12:50 Urine Mucus Moderate /hpf (FEW) H 07/25/20 12:50 Urine HCG, Qual Negative (NEGATIVE) 07/25/20 12:50 Influenza Type A RNA Negative (NEGATIVE) 07/25/20 15:10 Influenza Type B RNA Negative (NEGATIVE) 07/25/20 15:10 SARS-CoV-2 RNA (BRETT) Negative (NEGATIVE) 07/25/20 15:10 - Allergies Allergies/Adverse Reactions: Allergies Allergy/AdvReac Type Severity Reaction Status Date / Time No Known Allergies Allergy Verified 09/11/16 03:22 - Blood Blood Available: No - Acknowledgements Anesthesia Type Planned: General Anesthesia Pt an Appropriate Candidate for the Planned Anesthesia: Yes Alternatives and Risks of Anesthesia Discussed w Pt/Guardian: Yes Pt/Guardian Understands and Agrees with Anesthesia Plan: Yes PreAnesthesia Questionnaire - Past Health History Medical/Surgical History: Denies Medical/Surgical History Cardiovascular History: Reports: None Respiratory History: Reports: None Gastrointestinal History: Reports: None 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: Musculoskeletal History: Reports: None Oncologic (Cancer) History: Reports: None - Past Surgical History HEENT Surgical History: Reports: Tonsillectomy - SUBSTANCE USE Tobacco Use Status *Q: Never Tobacco User Tobacco Use Within Last Twelve Months: No Second Hand Smoke Exposure: Yes Days Per Week of Alcohol Use: 0 (rare) Recreational Drug Use History: No - HOME MEDS Home Medications: Home Meds Etonogestrel [Nexplanon] 1 applic ASDIRECTED 01/27/19 [History] - CURRENT (IN HOUSE) MEDS Current Meds: Current Medications Sodium Chloride (Normal Saline) 1,000 mls @ 999 mls/hr IV ASDIRECTED LETY Last Admin: 07/25/20 12:55 Dose: 999 mls/hr Documented by: Sodium Chloride (Normal Saline) 1,000 mls @ 150 mls/hr IV ONETIME ONE Stop: 07/25/20 21:51 Last Admin: 07/25/20 15:29 Dose: 150 mls/hr Documented by: Sodium Chloride (Saline Flush) 10 ml FLUSH ASDIRECTED PRN PRN Reason: Keep Vein Open Last Admin: 07/25/20 14:54 Dose: 10 ml Documented by: Discontinued Medications Dexamethasone (Dexamethasone) Confirm Administered Dose 20 mg .ROUTE .STK-MED ONE Stop: 07/25/20 16:34 Diatrizoate Meglum/Diatrizoate Sod (Gastrografin 37%) 60 ml PO ONETIME ONE Stop: 07/25/20 14:39 Last Admin: 07/25/20 14:49 Dose: 60 ml Documented by: Fentanyl (Sublimaze) Confirm Administered Dose 250 mcg .ROUTE .STK-MED ONE Stop: 07/25/20 16:32 Cefoxitin Sodium 2 gm/ Premix 50 mls @ 100 mls/hr IV ONETIME ONE Stop: 07/25/20 15:39 Last Admin: 07/25/20 15:29 Dose: 100 mls/hr Documented by: Lidocaine HCl (Xylocaine-Mpf 1%) Confirm Administered Dose 4 mls @ as directed .ROUTE .STK-MED ONE Stop: 07/25/20 16:31 Iopamidol (Isovue-300 (61%)) 100 ml IVPUSH ONETIME ONE Stop: 07/25/20 14:39 Last Admin: 07/25/20 14:49 Dose: 100 ml Documented by: Iopamidol (Isovue-300 (61%)) 25 ml IVPUSH ONETIME ONE Stop: 07/25/20 14:39 Last Admin: 07/25/20 14:49 Dose: 25 ml Documented by: Metoclopramide HCl (Reglan) 10 mg IVPUSH ONETIME ONE Stop: 07/25/20 15:11 Last Admin: 07/25/20 15:28 Dose: 10 mg Documented by: Midazolam HCl (Versed 1 Mg/Ml) Confirm Administered Dose 2 mg .ROUTE .STK-MED ONE Stop: 07/25/20 16:32 Ondansetron HCl (Zofran) 4 mg IVPUSH ONETIME ONE Stop: 07/25/20 12:23 Last Admin: 07/25/20 12:55 Dose: 4 mg Documented by: Ondansetron HCl (Zofran) Confirm Administered Dose 4 mg .ROUTE .STK-MED ONE Stop: 07/25/20 16:31 Propofol (Diprivan 20 Ml) Confirm Administered Dose 200 mg .ROUTE .STK-MED ONE Stop: 07/25/20 16:31 Rocuronium Carter (Zemuron) Confirm Administered Dose 50 mg .ROUTE .STK-MED ONE Stop: 07/25/20 16:31
[2020-07-25] MEDS ORDERED: HYDROmorphone 0.5 MG/0.5 ML Syringe ONE (18:08)
[2020-07-25] MEDS ORDERED: Ketorolac 30 MG/ML SDV ONE (18:12)
[2020-07-25] MEDS ORDERED: fentaNYL 100 MCG/2 ML SDV IVPUSH PRN (18:14)
[2020-07-25] MEDS ORDERED: HYDROmorphone 0.5 MG/0.5 ML Syringe IVPUSH PRN (18:14)
[2020-07-25] MEDS ORDERED: Ondansetron 4 MG/2 ML SDV IVPUSH PRN (18:14)
--- NOTE | 2020-07-25 18:59 | PCM.POSTAN ---
POST ANESTHESIA ASSESSMENT - MENTAL STATUS Mental Status: Alert, Somnolent - VITAL SIGNS Vital Signs: Last Vital Signs Temp 98.3 F 07/25/20 11:41 Pulse 60 07/25/20 11:41 Resp 20 07/25/20 11:41 BP 115/73 07/25/20 11:41 Pulse Ox 98 07/25/20 11:41 1854 87 16 98.4 109/63 98% - RESPIRATORY Respiratory Status: Respiratory Rate WNL, Airway Patent, O2 Saturation Stable, Supplemental Oxygen - CARDIOVASCULAR CV Status: Pulse Rate WNL, Blood Pressure Stable - GASTROINTESTINAL GI Status: No Symptoms - PAIN Pain Score: 0 (sleepy) - POST OP HYDRATION Hydration Status: Adequate & Stable
[2020-07-25] MEDS ORDERED: Haloperidol Lactate 5 MG/ML SDV IVPUSH ONE (19:29)
[2020-07-25] MEDS ORDERED: Haloperidol Lactate 5 MG/ML SDV ONE (19:38)
--- NOTE | 2020-07-25 20:22 | OR ---
DATE OF OPERATION: 07/25/2020 SURGEON: Jeniffer Ortega MD PREOPERATIVE DIAGNOSIS: Acute appendicitis. POSTOPERATIVE DIAGNOSIS: Acute appendicitis. OPERATION PERFORMED: Laparoscopic appendectomy. ANESTHESIA: Endotracheal. ESTIMATED BLOOD LOSS: 5 mL. COMPLICATIONS: None. INDICATIONS AND CONSENT: The patient is a 24-year-old female who woke up this morning with acute abdominal pain, initially was periumbilical, then had localized to the right lower quadrant. The patient's pain progressed and decided to come to the emergency department. She had an episode of diarrhea prior to arrival to the ED. In the emergency department, white count was normal, and the patient was stable. CT scan was concerning for an enlarged appendix but it was not clear if this was inflamed. I was asked to come and see the patient. I examined the patient, took the history and did a physical examination. On my history and physical, I was concerned that the patient has an early appendicitis since she had a right lower quadrant abdominal pain that was acute onset, as well as some findings of distal appendiceal enhancement indicating inflammation on CT scan. Because of these findings, I did discuss with the patient treatment options for acute appendicitis including antibiotics versus surgery. I discussed with the patient and the patient's risks and benefits for both. The patient decided to proceed with surgery. All questions were answered and an informed consent was obtained. DESCRIPTION OF PROCEDURE: The patient was taken to the operating room, placed in supine position, padded appropriately. General endotracheal anesthesia was induced and then the abdomen was prepped and draped in the usual sterile fashion. Formal time-out was performed prior to the start of the procedure. The patient had already received cefoxitin for antibiotics. Therefore, none was indicated at this time. I began the procedure by injecting local anesthetic consisting of 1% lidocaine in the infraumbilical position. Then, an incision was made. Subcutaneous tissue dissected bluntly with a Radha clamp and the umbilical stalk was elevated. Then, a Veress needle was placed into the abdomen through this infraumbilical incision and then the abdomen was insufflated to 15 mmHg. Then, 12 mm trocar was inserted in the infraumbilical position under direct visualization of laparoscope. No injury to Veress needle or trocar insertion was noted. Then, two additional 5 mm laparoscopes were placed; one in the left lower quadrant, another one in the suprapubic position. The patient was placed in slight Trendelenburg position and left-sided down slightly. We focused on the right lower quadrant. The appendix was identified and elevated. It was inflamed and the distal 3rd of the appendix was inflamed and indurated. Appendiceal base was identified. A window was made at this site and the appendix was divided as at its base using a blue load Endo-MARIANNE stapler. The mesoappendix was divided using LigaSure Impact. The appendix was placed in the EndoCatch bag. There was a mild amount of inflammatory fluid in the pelvis. These were reduced using a 4 x 4 gauze. The scope was removed from the abdomen. Then, the appendix was removed through the infraumbilical incision and then the fascia at the infraumbilical incision was closed with 0 Vicryl stitch using Dick-Charity device and skin at all three sites was closed with 4-0 Monocryl and then Dermabond was applied. This marked the end of the procedure. At the end of procedure, instruments, sharps, and sponges were counted and found to be correct x2. The patient was awoken, and extubated and taken to the PACU for recovery. The patient will be allowed to go home if she does well in during recovery and come back to see me in clinic in 2 weeks. MMODAL /[id number] CORAL
--- NOTE | 2020-07-25 21:46 | PCM48HPAN ---
Post Anesthesia Note - EVALUATION WITHIN 48HRS OF ANESTHETIC Vital Signs in Normal Range: Yes Patient Participated in Evaluation: Yes Respiratory Function Stable: Yes Airway Patent: Yes Cardiovascular Function Stable: Yes Hydration Status Stable: Yes Pain Control Satisfactory: Yes Nausea and Vomiting Control Satisfactory: Yes Mental Status Recovered: Yes (feels better. little pain) Vital Signs: Last Vital Signs Temp 98.0 F 07/25/20 20:10 Pulse 61 07/25/20 20:10 Resp 16 07/25/20 20:10 BP 100/69 07/25/20 20:10 Pulse Ox 100 07/25/20 20:10
[2020-07-25 22:54] VITALS: BP 112/92; PULSE 60
--- NOTE | 2020-07-26 08:34 | CT ---
CT abdomen and pelvis Technique: Multiple axial sections were obtained from above the dome of the diaphragm inferiorly through the pubic symphysis. Intravenous and oral contrast was utilized. Delayed images were also obtained through the bladder. Comparison: No prior abdominal imaging is available. Findings: Visualized lung bases show nothing acute. Liver and spleen show no focal parenchymal abnormality. Adrenal glands show no nodules. Pancreas is within normal limits. Gallbladder contains no calcified gallstones. Kidneys show symmetric contrast enhancement. Small nonobstructing calculus appears to be present within the left kidney measuring approximately 5 mm. Cyst is noted within the right kidney measuring approximately 2.5 cm which contains a calcification. Additional small cysts are seen within both kidneys. Kidneys are otherwise unremarkable. Aorta shows no aneurysm. No retroperitoneal adenopathy or mesenteric abnormalities are seen. No pelvic mass or adenopathy is identified. Appendix shows some areas of thickening most likely representing a normal variant. There are no inflammatory changes being seen. Small amount of free fluid is seen within the pelvis which is most likely physiologic. Minimal fat-containing umbilical hernia is noted. Delayed images show contrast within the distal ureters and within the bladder. Bone window settings were reviewed which show no acute osseous finding. Impression: 1. Appendix is slightly prominent in size without inflammatory change which most likely is a normal variant. If patient continues to be symptomatic for appendicitis, follow-up study could be obtained. 2. Cysts within both kidneys. Larger cyst on the right side shows a calcification which is believed to be benign. 3. Nonobstructing calculus within the left kidney. 4. Nothing acute is otherwise seen. 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
== END 2020-07-25 22:25 | disposition home or self-care (01) ==
LOC: JD.ED 11:09 → JD.SDS 16:14 → JD.MS 22:00 → JD.SDS 22:25
PROVIDERS: ATTEND Surgery
DX: K35.80 Unspecified acute appendicitis (principal); Z01.812 Encounter for preprocedural laboratory examination; Z20.822 Contact with and (suspected) exposure to COVID-19
CPT/HCPCS: 0240U; 36415; 44970; 74177; 80053; 81001; 81025; 85007; 85027; 86140; 96365; 96375; 99285; J0694; J1100; J1630; J1885; J2001; J2250; J2405; J2704; J2710; J2765; J3010; J3490; J7030; Q9963; Q9967; 00840; J1170

== ENCOUNTER 2020-10-02 16:26 | Emergency (ER) | payer SELFPAY ==
[2020-10-02 16:41] VITALS: BP 124/85; PULSE 91
[2020-10-02] MEDS ORDERED: Ondansetron 4 MG/2 ML SDV IVPUSH ONE (16:42)
[2020-10-02] MEDS ORDERED: Sodium Chloride 0.9% 10 ML Syringe FLUSH PRN (16:43)
[2020-10-02] MEDS ORDERED: Sodium Chloride 0.9% 1,000 ML IV SCH (16:45)
[2020-10-02] MEDS ORDERED: HYDROmorphone 0.5 MG/0.5 ML Syringe IVPUSH ONE (16:50)
--- NOTE | 2020-10-02 16:55 | EDM.PDOC ---
ED HPI GENERAL MEDICAL PROBLEM - General Chief Complaint: Abdominal Pain Stated Complaint: ABDOMINAL PAIN Time Seen by Provider: 10/02/20 16:28 Source of Information: Reports: Patient, RN Notes Reviewed History Limitations: Reports: No Limitations - History of Present Illness INITIAL COMMENTS - FREE TEXT/NARRATIVE: Patient is a 24-year-old female who presents to the ED for the evaluation of her upper abdominal pain. Patient notes that this has been present for the last 2 weeks, seems to kind to come and go, but today the pain has become severe and she would rated at about a 9 out of 10. She notes that episodes have been lasting 1 to 2 minutes, and that they seem to go in 15-minute intervals. She notes that she is feeling nauseous in the morning, with some slight dizziness as well. She states that everything seems to start in the morning. Patient is taking some weight loss pills, and also has been having some mild diarrhea. She notes that she still retains her gallbladder, but has had her appendix removed in June 2020. She had no fevers or chills, no cough or shortness of breath, nausea but no vomiting. Primary care provider is Milvia Lester. She denies any other past medical history. Patient is not known to have any sort of ulcer, or reflux disease. 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 ED EXAM, GI/ABD - Physical Exam Exam: See Below Exam Limited By: No Limitations General Appearance: Alert, WD/WN, No Apparent Distress Eyes: Bilateral: Normal Appearance, EOMI Respiratory/Chest: No Respiratory Distress, Lungs Clear, Normal Breath Sounds, No Accessory Muscle Use, Chest Non-Tender Cardiovascular: Normal Peripheral Pulses, Regular Rate, Rhythm, No Edema GI/Abdominal Exam: Normal Bowel Sounds, Soft, No Distention, No Mass, Tender (epigastrium mainly) Neurological: Alert, Oriented, Normal Cognition, No Motor/Sensory Deficits Psychiatric: Normal Affect, Normal Mood Skin Exam: Warm, Dry, Intact, Normal Color, No Rash Course - Vital Signs Last Recorded V/S: Last Vital Signs Temp 96.9 F 10/02/20 16:36 Pulse 91 10/02/20 16:36 Resp 16 10/02/20 16:36 BP 124/85 10/02/20 16:36 Pulse Ox 98 10/02/20 16:36 - Orders/Labs/Meds Orders: Active Orders 24 hr Category Date Time Status Peripheral IV Care [RC] . DIRECTED Care 10/02/20 16:43 Ordered Abdomen Pelvis w Cont [CT] Stat Exams 10/02/20 16:42 Ordered Sodium Chloride 0.9% [Normal Saline] 1,000 ml Med 10/02/20 16:45 Ordered IV ASDIRECTED Sodium Chloride 0.9% [Saline Flush] Med 10/02/20 16:43 Ordered 10 ml FLUSH ASDIRECTED PRN Peripheral IV Insertion Adult [OM.PC] Routine Oth 10/02/20 16:43 Ordered Medication Orders Sodium Chloride (Normal Saline) 1,000 mls @ 999 mls/hr IV ASDIRECTED LETY Last Admin: 10/02/20 16:55 Dose: 999 mls/hr Documented by: JOBY Sodium Chloride (Sodium Chloride 0.9% 10 Ml Syringe) 10 ml FLUSH ASDIRECTED PRN PRN Reason: Keep Vein Open Last Admin: 10/02/20 16:55 Dose: 10 ml Documented by: JOBY Labs: Laboratory Tests 10/02/20 10/02/20 10/02/20 Range/Units 16:38 16:38 16:38 WBC 13.79 H (3.98-10.04) K/mm3 RBC 5.07 (3.98-5.22) M/mm3 Hgb 15.3 (11.2-15.7) gm/dl Hct 44.8 (34.1-44.9) % MCV 88.4 (79.4-94.8) fl MCH 30.2 (25.6-32.2) pg MCHC 34.2 (32.2-35.5) g/dl RDW Std Deviation 40.9 (36.4-46.3) fL Plt Count 180 L (182-369) K/mm3 MPV 10.1 (9.4-12.3) fl Neutrophils % (Manual) 81 H (40-60) % Band Neutrophils % 1 (0-10) % Lymphocytes % (Manual) 14 L (20-40) % Atypical Lymphs % 0 % Monocytes % (Manual) 3 (2-10) % Eosinophils % (Manual) 1 (0.7-5.8) % Basophils % (Manual) 0 L (0.1-1.2) Platelet Estimate Adequate RBC Morph Comment Normal Sodium 142 (136-145) mEq/L Potassium 3.8 (3.5-5.1) mEq/L Chloride 103 (98-107) mEq/L Carbon Dioxide 25 (21-32) mEq/L Anion Gap 17.8 H (5-15) BUN 15 (7-18) mg/dL Creatinine 0.9 (0.55-1.02) mg/dL Est Cr Clr Drug Dosing 91.79 mL/min Estimated GFR (MDRD) > 60 (>60) mL/min BUN/Creatinine Ratio 16.7 (14-18) Glucose 94 (74-106) mg/dL Calcium 8.8 (8.5-10.1) mg/dL Total Bilirubin 0.8 (0.2-1.0) mg/dL GGT 15 (5-55) U/L AST 17 (15-37) U/L ALT 31 (14-59) U/L Alkaline Phosphatase 45 L (46-116) U/L Total Protein 8.2 (6.4-8.2) g/dl Albumin 4.5 (3.4-5.0) g/dl Globulin 3.7 gm/dL Albumin/Globulin Ratio 1.2 (1-2) Lipase 149 (73-393) U/L HCG, Qual Negative (NEGATIVE) Urine Color (Yellow) Urine Appearance (Clear) Urine pH (5.0-8.0) Ur Specific [place] (1.005-1.030) Urine Protein (Negative) Urine Glucose (UA) (Negative) Urine Ketones (Negative) Urine Occult Blood (Negative) Urine Nitrite (Negative) Urine Bilirubin (Negative) Urine Urobilinogen (0.2-1.0) Ur Leukocyte Esterase (Negative) Urine RBC (0-5) /hpf Urine WBC (0-5) /hpf Ur Squamous Epith Cells (0-5) /hpf Urine Bacteria (FEW) /hpf Urine Mucus (FEW) /hpf 10/02/20 Range/Units 17:49 WBC (3.98-10.04) K/mm3 RBC (3.98-5.22) M/mm3 Hgb (11.2-15.7) gm/dl Hct (34.1-44.9) % MCV (79.4-94.8) fl MCH (25.6-32.2) pg MCHC (32.2-35.5) g/dl RDW Std Deviation (36.4-46.3) fL Plt Count (182-369) K/mm3 MPV (9.4-12.3) fl Neutrophils % (Manual) (40-60) % Band Neutrophils % (0-10) % Lymphocytes % (Manual) (20-40) % Atypical Lymphs % % Monocytes % (Manual) (2-10) % Eosinophils % (Manual) (0.7-5.8) % Basophils % (Manual) (0.1-1.2) Platelet Estimate RBC Morph Comment Sodium (136-145) mEq/L Potassium (3.5-5.1) mEq/L Chloride (98-107) mEq/L Carbon Dioxide (21-32) mEq/L Anion Gap (5-15) BUN (7-18) mg/dL Creatinine (0.55-1.02) mg/dL Est Cr Clr Drug Dosing mL/min Estimated GFR (MDRD) (>60) mL/min BUN/Creatinine Ratio (14-18) Glucose (74-106) mg/dL Calcium (8.5-10.1) mg/dL Total Bilirubin (0.2-1.0) mg/dL GGT (5-55) U/L AST (15-37) U/L ALT (14-59) U/L Alkaline Phosphatase (46-116) U/L Total Protein (6.4-8.2) g/dl Albumin (3.4-5.0) g/dl Globulin gm/dL Albumin/Globulin Ratio (1-2) Lipase (73-393) U/L HCG, Qual (NEGATIVE) Urine Color Yellow (Yellow) Urine Appearance Clear (Clear) Urine pH 6.0 (5.0-8.0) Ur Specific [place] > or = 1.030 (1.005-1.030) Urine Protein Negative (Negative) Urine Glucose (UA) Negative (Negative) Urine Ketones Trace H (Negative) Urine Occult Blood Negative (Negative) Urine Nitrite Negative (Negative) Urine Bilirubin Negative (Negative) Urine Urobilinogen 0.2 (0.2-1.0) Ur Leukocyte Esterase Negative (Negative) Urine RBC 0-5 (0-5) /hpf Urine WBC 0-5 (0-5) /hpf Ur Squamous Epith Cells 0-5 (0-5) /hpf Urine Bacteria Few (FEW) /hpf Urine Mucus Few (FEW) /hpf Meds: Medications Generic Name Dose Route Start Last Admin Trade Name Monica PRN Reason Stop Dose Admin Sodium Chloride 1,000 mls @ 999 mls/hr 10/02/20 16:45 10/02/20 16:55 Normal Saline IV 999 mls/hr ASDIRECTED LETY Administration Sodium Chloride 10 ml 10/02/20 16:43 10/02/20 16:55 Sodium Chloride 0.9% 10 Ml Syringe FLUSH 10 ml ASDIRECTED PRN Administration Keep Vein Open Discontinued Medications Generic Name Dose Route Start Last Admin Trade Name Monica PRN Reason Stop Dose Admin Hydromorphone HCl 0.5 mg 10/02/20 16:50 10/02/20 16:57 Hydromorphone 0.5 Mg/0.5 Ml Syringe IVPUSH 10/02/20 16:51 0.5 mg ONETIME ONE Administration Promethazine HCl 25 mg/ Sodium 51 mls @ 100 mls/hr 10/02/20 17:46 10/02/20 18:05 Chloride IV 10/02/20 18:16 100 mls/hr ONETIME ONE Administration Iopamidol 100 ml 10/02/20 17:43 10/02/20 17:58 Iopamidol 612 Mg/Ml 100 Ml Bottle IVPUSH 10/02/20 17:44 100 ml ONETIME ONE Administration Metoclopramide HCl 10 mg 10/02/20 17:22 10/02/20 18:01 Metoclopramide 10 Mg/2 Ml Sdv IVPUSH 10/02/20 17:23 10 mg ONETIME ONE Administration Ondansetron HCl 4 mg 10/02/20 16:42 10/02/20 16:55 Ondansetron 4 Mg/2 Ml Sdv IVPUSH 10/02/20 16:43 4 mg ONETIME ONE Administration Sodium Chloride 10 ml 10/02/20 17:43 10/02/20 17:58 Sodium Chloride 0.9% 10 Ml Syringe FLUSH 10/02/20 17:44 10 ml ONETIME ONE Administration - Re-Assessments/Exams Free Text/Narrative Re-Assessment/Exam: 10/02/20 16:54 Patient presents to the ER for her abdomen pain. We will get baseline labs, get IV established, give her something for pain, nausea, some IV fluids, and obtain an abdomen pelvis CT with IV and oral contrast for further evaluation. 10/02/20 17:56 Patient has been having an ongoing struggle with nausea. She has been given Reglan and Phenergan subsequently for management of this. Labs did result, and demonstrates a mildly elevated white count at 13.79 with 81% neutrophils and 1 band. Anion gap is mildly elevated at 17.8, liver enzymes are within normal limits, GGT and lipase are also in normal limits. Her hCG is negative. There are no other remarkable findings on the metabolic panel. CT has not yet been performed at this time. 10/02/20 18:55 CT has been performed, and there was a 1.8 cm crenulated cyst in the right adnexa where there is a moderate amount of free fluid in the pelvis, possibly a ruptured hemorrhagic cyst. There are few fluid-filled loops of small bowel, could we are resent a component of enteritis, I do feel like this is likely the cause of her abdomen pain. I did call our ROLL TABLE OPERATOR, Dr. Ram regarding this cyst, and she believes this to be incidental, if the patient's vitals are stable, she can follow-up in clinic as needed this week. I will reassess the patient, and see how she is feeling, as it is been somewhat hard to keep her nausea under control. 10/02/20 19:03 Patient was having pretty good results with the Phenergan medication. We will go ahead and give her a prescription for this, and a prescription for dicyclomine for her abdomen cramping. Patient verbalized understanding. She will follow up with ROLL TABLE OPERATOR. Departure - Departure Time of Disposition: 19:03 Disposition: Home, Self-Care 01 Condition: Good Clinical Impression: Gastroenteritis Ovarian cyst Qualifiers: Laterality: right Qualified Code(s): N83.201 - Unspecified ovarian cyst, right side - Discharge Information *PRESCRIPTION DRUG MONITORING PROGRAM REVIEWED*: No *COPY OF PRESCRIPTION DRUG MONITORING REPORT IN PATIENT [place]: No Prescriptions: Dicyclomine [Bentyl] 20 mg PO TID #15 tab Promethazine [Phenergan] 25 mg PO Q6H PRN #20 tab PRN Reason: Nausea Instructions: Viral Gastroenteritis, Adult, [id number], Ovarian Cyst, [id number] Referrals: Milvia Lester PA-C [Primary Care Provider] - Forms: ED Department Discharge Additional Instructions: You were seen in this ER for your upper abdomen pain. Your laboratory evaluation done at today's visit demonstrated no focal abnormalities, your white count was a little bit increased however this is likely due to a stress response due to the amount of pain and nausea you are having. You were given IV fluids, and IV nausea medications, and ultimately Phenergan seem to help provide relief of your nausea. You have been given a prescription of Phenergan, and dicyclomine for ongoing abdomen discomfort. This medication was electronically sent to the [place] [facility] Please stick to a clear liquid diet for the next 24 to 48 hours, see if this helps relieve most of your nausea and upper abdomen pain. You may advance to a bland diet as tolerated, fluids like Gatorade/Powerade would be sufficient during this time. Please follow-up with your ROLL TABLE OPERATOR, Dr. Ram for the findings of the ovarian cyst on CT today, for further management and or evaluation as needed. Call her office on Sunday to schedule follow-up appointment. Please return to the ER at any time if symptoms change or worsen. Sepsis Event Note (ED) - Evaluation Sepsis Screening Result: No Definite Risk - Focused Exam Vital Signs: Vital Signs Temp Pulse Resp BP Pulse Ox 10/02/20 16:36 96.9 F 91 16 124/85 98 - My Orders Last 24 Hours: My Active Orders 10/02/20 16:42 Abdomen Pelvis w Cont [CT] Stat 10/02/20 16:43 Peripheral IV Care [RC] . DIRECTED Sodium Chloride 0.9% [Saline Flush] 10 ml FLUSH ASDIRECTED PRN Peripheral IV Insertion Adult [OM.PC] Routine 10/02/20 16:45 Sodium Chloride 0.9% [Normal Saline] 1,000 ml IV ASDIRECTED - Assessment/Plan Last 24 Hours: My Active Orders 10/02/20 16:42 Abdomen Pelvis w Cont [CT] Stat 10/02/20 16:43 Peripheral IV Care [RC] . DIRECTED Sodium Chloride 0.9% [Saline Flush] 10 ml FLUSH ASDIRECTED PRN Peripheral IV Insertion Adult [OM.PC] Routine 10/02/20 16:45 Sodium Chloride 0.9% [Normal Saline] 1,000 ml IV ASDIRECTED
[2020-10-02] MEDS ORDERED: Metoclopramide 10 MG/2 ML SDV IVPUSH ONE (17:22)
[2020-10-02] MEDS ORDERED: Sodium Chloride 0.9% 10 ML Syringe FLUSH ONE (17:43)
[2020-10-02] MEDS ORDERED: Iopamidol 612 MG/ML 100 ML Bottle IVPUSH ONE (17:43)
[2020-10-02] MEDS ORDERED: Promethazine 25 MG in Sodium Chloride 0.9% 50 ML IV ONE (17:46)
--- NOTE | 2020-10-03 10:52 | CT ---
CT abdomen and pelvis Technique: Multiple axial sections were obtained from above the dome of the diaphragm inferiorly through the pubic symphysis. Intravenous contrast was utilized. No oral contrast has been given. Reconstructed coronal and sagittal images were obtained. Comparison: Prior CT abdomen and pelvis exam of 07/25/20. Findings: Visualized lung bases show nothing acute. Liver contains no focal parenchymal abnormality. Spleen appears within normal limits. Adrenal glands show no nodule. Pancreas shows no discrete abnormality. Gallbladder contains no calcified gallstones. Cyst is noted within the right kidney which contains some layering calcifications. This cyst measures about 2.5 cm which is stable from previous exam. Smaller cyst is noted more superiorly within the right kidney measuring approximately 7 mm in size. Kidneys show symmetric contrast enhancement. Left kidney shows a small nonobstructing calculus which is stable. Abdominal aorta shows no aneurysm. No retroperitoneal adenopathy or mesenteric abnormalities are seen. Prior surgery is noted at the tip of the cecum. Appendix is not visualized. Free fluid is seen within the pelvis. Small physiologic cyst is noted within the right ovary. No pelvic mass or inflammatory change is seen. Bone window settings were reviewed which appear within normal limits for the patient's age. Small fat-containing umbilical hernia is noted. Impression: 1. Prior surgery off the tip of the cecum. Appendix is not visualized. 2. Free fluid within the pelvis possibly at the upper limits of normal for being physiologic. 3. Other findings as noted above which are stable. Diagnostic code #2 I agree with preliminary report from [facility], finalized on 10/02/20, 7:26 PM CDT
== END 2020-10-02 19:20 | disposition home or self-care (01) ==
LOC: JD.ED 16:26
DX: N83.201 Unspecified ovarian cyst, right side (principal); K52.9 Noninfective gastroenteritis and colitis, unspecified
CPT/HCPCS: 36415; 74177; 80053; 81001; 82977; 83690; 84703; 85007; 85027; 96365; 96375; 99284; J1170; J2405; J2550; J2765; J7030; Q9967

== ENCOUNTER 2022-02-08 14:52 | Inpatient (IN) | payer OTHER ==
[~2022-02-08 14:52] MED LIST: Bupivacaine 0.25% 10 ML SDV ONE
[2022-02-08] MEDS ORDERED: Ondansetron 4 MG/2 ML SDV IVPUSH PRN (16:15)
[2022-02-08] MEDS ORDERED: Oxytocin/Lactated Ringers 10 UNIT/1,000 ML BAG IV SCH ×2 (16:15)
[2022-02-08] MEDS ORDERED: Nalbuphine HCl 10 MG/ 1ML Amp IVPUSH PRN (16:15)
[2022-02-08] MEDS ORDERED: Lidocaine 1% 50 ML MDV INJECT SCH (16:15)
[2022-02-08] MEDS ORDERED: Sodium Chloride 0.9% 10 ML Syringe FLUSH PRN (16:15)
[2022-02-08] MEDS ORDERED: Ampicillin 2 GM in Sodium Chloride 0.9% 100 ML IV ONE (16:30)
[2022-02-08] MEDS: Lactated Ringers 1,000 ML IV SCH ×2 (16:30→17:49)
[2022-02-08] MEDS ORDERED: diphenhydrAMINE 50 MG/ML SDV IVPUSH PRN (17:20)
[2022-02-08] MEDS ORDERED: fentaNYL 100 MCG/2 ML SDV EPIDUR PRN (17:20)
[2022-02-08] MEDS ORDERED: ePHEDrine 50 MG/ML SDV IVPUSH PRN (17:20)
[2022-02-08] MEDS ORDERED: Bupivacaine/fentaNYL/NS 100 ML Bag EPIDUR PRN (17:20)
[2022-02-08] MEDS ORDERED: Ampicillin 1 GM in Sodium Chloride 0.9% 100 ML IV SCH (20:30)
[2022-02-08] MEDS ORDERED: Sodium Chloride 0.9% 10 ML Syringe FLUSH SCH (21:00)
[2022-02-08] MEDS ORDERED: Acetaminophen 325 MG Tab PO PRN (22:10)
[2022-02-08] MEDS ORDERED: Benzocaine/Menthol 20%-0.5% Spray 78 GM Cannister TOP PRN (22:10)
[2022-02-08] MEDS ORDERED: Docusate Sodium 100 MG Cap PO PRN (22:10)
[2022-02-08] MEDS ORDERED: Witch Hazel Medicated Pads 40/Jar TOP PRN (22:10)
[2022-02-08] MEDS: Ibuprofen 600 MG Tab PO PRN (22:29)
[2022-02-09] MEDS: Ibuprofen 600 MG Tab PO PRN ×2 (09:31→16:25)
[2022-02-10] MEDS: Ibuprofen 600 MG Tab PO PRN (02:20)
[2022-02-10 10:05] VITALS: BP 119/82; PULSE 82
== END 2022-02-10 11:55 | disposition home or self-care (01) | DRG 807 ==
LOC: JD.OBCHECK 14:52 → JD.OB 14:53 → JD.OBCHECK 16:15 → JD.OB 21:16 → OBSVTOIN 21:26
PROVIDERS: ADMIT Obstetrics & Gynecology; ATTEND Obstetrics & Gynecology
PROC: 10E0XZZ Delivery of Products of Conception, External Approach (ICD-10-PCS; principal; 2022-02-08)
PROC: 10907ZC Drainage of Amniotic Fluid, Therapeutic from Products of Conception, Via Natural or Artificial Opening (ICD-10-PCS; 2022-02-08)
PROC: 3E0R3BZ Introduction of Anesthetic Agent into Spinal Canal, Percutaneous Approach (ICD-10-PCS; 2022-02-08)
PROC: 00HU33Z Insertion of Infusion Device into Spinal Canal, Percutaneous Approach (ICD-10-PCS; 2022-02-08)
PROC: 0HQ9XZZ Repair Perineum Skin, External Approach (ICD-10-PCS; 2022-02-08)
DX: O99.824 Streptococcus B carrier state complicating childbirth (principal); Z37.0 Single live birth; Z3A.39 39 weeks gestation of pregnancy; O70.0 First degree perineal laceration during delivery; Z86.16 Personal history of COVID-19
CPT/HCPCS: 01967; 36415; 51702; 59025; 59409; 85025; 85461; 86592; 86850; 86900; 86901; A9270-GY; J0290; J2405; J2590; J2790; J3010; J3490; J7120

== ENCOUNTER 2024-09-10 09:26 | Emergency (ER) | payer SELFPAY ==
[2024-09-10 09:46] VITALS: BP 129/91; PULSE 60
[2024-09-10] MEDS ORDERED: Sodium Chloride 0.9% 10 ML Syringe FLUSH PRN ×2 (10:04→10:59)
[2024-09-10 10:18] LABS: BASOPHILS PERCENT AUTO 0.3 % (0.0-1.0); EOSINOPHILS ABSOLUTE AUTO 0.1 K/mm3 (0.0-0.4); EOSINOPHILS PERCENT AUTO 1.4 % (0.0-6.0); HEMATOCRIT 42.5 % (37.0-47.0); HEMOGLOBIN 14.8 gm/dl (12.0-16.0); IMMATURE GRAN ABSOLUTE AUTO 0.02 K/mm3 (0.00-0.05); IMMATURE GRAN PERCENT AUTO 0.3 % (0.0-0.4); LYMPHOCYTES ABSOLUTE AUTO 1.7 K/mm3 (1.0-4.8); LYMPHOCYTES PERCENT AUTO 29.3 % (24.0-44.0); MEAN CORPUSCULAR HEMOGLOBIN 30.5 pg (28.0-32.0); MEAN CORPUSCULAR HGB CONC 34.8 g/dl (32.0-36.0); MEAN CORPUSCULAR VOLUME 87.6 fl (83.0-99.0); MEAN PLATELET VOLUME 10.1 fl (9.4-12.3); MONOCYTES ABSOLUTE AUTO 0.4 K/mm3 (0.0-0.8); MONOCYTES PERCENT AUTO 7.4 % (0.0-8.0); NEUTROPHILS ABSOLUTE AUTO 3.6 K/mm3 (1.8-7.7); NEUTROPHILS PERCENT AUTO 61.3 % (41.0-71.0); PLATELET COUNT,PLT 203 K/mm3 (150-400); RED BLOOD CELL COUNT 4.85 M/mm3 (4.10-5.30); WHITE BLOOD CELL COUNT,WBC 5.84 K/mm3 (3.9-11.3)
[2024-09-10] MEDS: Meclizine 25 MG Tab PO ONE (10:20)
[2024-09-10] MEDS: Sodium Chloride 0.9% 1,000 ML IV ONE (10:20)
[2024-09-10 10:45] LABS: A/G RATIO 1.1 (1-2); ALBUMIN 4.3 g/dl (3.4-5.0); ANION GAP 15.6 (5-15); BILIRUBIN TOTAL 1.1 mg/dL (0.2-1.0); BUN/CREATININE RATIO 21.3 (14-18); CALCIUM 9.1 mg/dL (8.5-10.1); CREATININE 0.8 mg/dL (0.55-1.02); EST CRCL DRUG DOSING (CG) 95.89 mL/min; POTASSIUM,K 3.6 mEq/L (3.5-5.1); PROTEIN TOTAL,TP 8.1 g/dl (6.4-8.2)
[2024-09-10] MEDS: Iopamidol 755 Mg/ML 100 ML Bottle IVPUSH ONE (11:29)
[2024-09-10] MEDS: Sodium Chloride 0.9% 100 ML IV SCH (11:29)
== END 2024-09-10 12:43 | disposition home or self-care (01) ==
LOC: JD.ED 09:26
DX: R42 Dizziness and giddiness (principal); R51.9 Headache, unspecified; Z87.19 Personal history of other diseases of the digestive system; Z86.16 Personal history of COVID-19
CPT/HCPCS: 36415; 70450; 70496; 70498; 80053; 83735; 84703; 85025; 93005; 96360; 99284; A9270; J7030; Q9967; 93010

== ENCOUNTER 2025-04-06 15:30 | Emergency (ER) | payer SELFPAY ==
[2025-04-06 17:32] LABS: BASOPHILS ABSOLUTE AUTO 0.1 K/mm3 (0.0-0.2); BASOPHILS PERCENT AUTO 0.8 % (0.0-1.0); EOSINOPHILS ABSOLUTE AUTO 0.1 K/mm3 (0.0-0.4); EOSINOPHILS PERCENT AUTO 1.8 % (0.0-6.0); IMMATURE GRAN ABSOLUTE AUTO 0.03 K/mm3 (0.00-0.05); IMMATURE GRAN PERCENT AUTO 0.4 % (0.0-0.4); LYMPHOCYTES ABSOLUTE AUTO 2.4 K/mm3 (1.0-4.8); LYMPHOCYTES PERCENT AUTO 30.8 % (24.0-44.0); MEAN PLATELET VOLUME 9.4 fl (9.4-12.3); MONOCYTES ABSOLUTE AUTO 0.5 K/mm3 (0.0-0.8); MONOCYTES PERCENT AUTO 6.8 % (0.0-8.0); NEUTROPHILS ABSOLUTE AUTO 4.6 K/mm3 (1.8-7.7); NEUTROPHILS PERCENT AUTO 59.4 % (41.0-71.0); NRBC ABSOLUTE 0.00 (0.00-0.02); NRBC PERCENT 0.0 % (0.0-0.2); PLATELET COUNT,PLT 206 K/mm3 (150-400); RED BLOOD CELL COUNT 4.52 M/mm3 (4.10-5.30); WHITE BLOOD CELL COUNT,WBC 7.76 K/mm3 (3.9-11.3)
[2025-04-06] MEDS: Ketorolac 30 MG/ML SDV IVPUSH ONE (17:40)
[2025-04-06 18:17] LABS: A/G RATIO 1.2 (1-2); ALANINE AMINOTRANSFERASE,ALT 18.0 U/L (14-59); ASPARTATE AMNIOTRANSFERASE,AST 11.0 U/L (15-37); BILIRUBIN TOTAL 0.6 mg/dL (0.2-1.0); BLOOD UREA NITROGEN,BUN 20.0 mg/dL (7-18); CARBON DIOXIDE,CO2 31.0 mEq/L (21-32); CHLORIDE,CL 105.0 mEq/L (98-107); CREATININE 0.8 mg/dL (0.55-1.02); EST CRCL DRUG DOSING (CG) 98.88 mL/min; ESTIMATED GFR 104.0 mL/min (>60); GLUCOSE RANDOM 94.0 mg/dL (70-99); POTASSIUM,K 3.6 mEq/L (3.5-5.1); PROTEIN TOTAL,TP 7.2 g/dl (6.4-8.2); SODIUM,NA 142.0 mEq/L (136-145)
[2025-04-06 19:43] VITALS: BP 112/70; PULSE 82
== END 2025-04-06 19:30 | disposition home or self-care (01) ==
LOC: JD.ED 15:30
DX: R20.8 Other disturbances of skin sensation (principal); T50.905A Adverse effect of unspecified drugs, medicaments and biological substances, initial encounter
CPT/HCPCS: 36415; 80053; 83735; 85025; 96374; 99283; J1885; J7030